=== PATIENT | female | born 1955 | race Caucasian/White ===

== ENCOUNTER 2019-08-16 08:48 | Emergency (ER) | payer MEDICARE, SELFPAY ==
[2019-08-16 08:50] VITALS: BP 155/76; PULSE 89; RESP 10; TEMP 36.5; O2SAT 96; BMI 26.1
--- NOTE | 2019-08-16 09:01 | CT_ITS ---
STUDY: CT BRAIN WITHOUT CONTRAST REASON FOR EXAM: Female, 63 years old. HEADACHE, HTN, CHEST PAIN X 1 WEEK RADIATION DOSAGE (If Supplied By Facility): CTDIvol = ( 44.99 ) mGy, DLP = ( 779.24 ) mGycm TECHNIQUE: Transaxial CT imaging of the brain was performed without administration of intravenous contrast material. Individualized dose optimization techniques were used for this CT. COMPARISON: No relevant priors. FINDINGS: Normal soft tissue structures. Normal calvarium. There is mild cerebral atrophy with widening of the extra-axial spaces and ventricular dilatation. There are areas of decreased attenuation within the white matter tracts of the supratentorial brain, consistent with microvascular disease changes. Tiny old lacunar infarct in the right insular cortex. Normal brainstem. Normal cerebellum. There is no intracranial hemorrhage. There are no findings of an acute ischemic infarction. Atherosclerotic calcification of the vertebral arteries and the cavernous portions of the internal carotid arteries bilaterally. Normal visualized paranasal sinuses. CT/Brain/Head without Contrast IMPRESSION: Chronic involutional changes of the brain. Electronically Signed: Michele Sheikh, at 10:00 EST , Service support ,
--- NOTE | 2019-08-16 09:04 | ED.VISSUMM ---
- ER Visit Summary Date of Service: 08/16/19 Chief Complaint: Chest pain History of Present Illness: The patient is a 63 F who presents with chest pain and a headache that is been getting worse over the past 1 to 2 weeks. Patient states it is gradually gotten worse. Patient states she called her primary care physician who told her to come to the emergency department. Patient states her headache is worse when she lays down. Patient admits to some nausea and vomiting. Patient admits to some shortness of breath and cough. Patient also admits to general myalgias and weakness. Past medical history includes diabetes and fibromyalgia. Patient also has a family history of coronary artery disease. Physical Examination: Vital signs are stable. Patient is afebrile. Patient is in no acute distress. Oral mucosa is pink and moist. Neck is supple. Trachea is midline. There is no JVD noted. Heart was regular rate and rhythm. Lungs are clear and equal bilaterally. Abdomen is soft. Bowel sounds are normal. There is no tenderness. There is no rebound or guarding noted. Skin is warm dry. Cranial nerves II through XII are intact. There are no focal motor or sensory deficits noted. Extremities are intact. There is no calf tenderness or edema. Test Results: EKG showed normal sinus rhythm with a rate of 107. There is a lot of artifact due to the patient's bladder stimulator. There are no acute ST or T wave changes. There are no prior EKGs available for comparison. PA and lateral chest x-ray was obtained. There is atelectasis versus scarring but no acute infiltrate. This was interpreted by the radiologist and myself. CT scan of the brain was obtained. There is no acute intracranial abnormality. CBC and comprehensive metabolic profile were within normal limits. Troponin was normal. Urinalysis shows positive nitrites with 3+ bacteria however there were negative leukocytes and 0-5 white blood cells. Emergency Department Course and Treatment: Patient was given morphine and Zofran here. Patient was feeling better on reevaluation. Patient has a HEART score of 3 and a SUSANNAH risk score of 0. Patient was advised that her chest pain is not likely cardiac in nature. Patient was instructed to follow-up with her primary care physician in 5 to 7 days. Patient understood and was agreeable with the plan. All questions were answered. Disposition: Discharge home Impression: 1. Chest pain 2. Headache This note was generated with Dragon dictation software. It may contain incorrect words, spelling, and punctuation that were not noted in review of the chart prior to signing ED Disposition - Plan for ED Patient: Disposition: Home or Assisted Living Diagnosis: Chest pain of uncertain etiology, Headache Instructions: CHEST PAIN, Uncertain Cause, HEADACHE, Unspecified Referrals: Nelly Strauss MD [Primary Care Provider] - 3-5 Days
[2019-08-16] MEDS: Ondansetron 4 MG/2 ML Vial IV (09:23)
[2019-08-16] MEDS: Morphine 4 MG/ML Syringe IV (09:23)
[2019-08-16 09:24] LABS: Absolute Lymphocyte Count 0.57 X10^3/uL (0.83-4.51); Basophil# 0.02 X10^3/uL; Basophil% 0.4 % (0-1); Eosinophil# 0.03 X10^3/uL; Eosinophils% 0.6 % (0-5); Hematocrit 37.7 % (37-47); Hemoglobin 12.2 g/dL (12.0-15.0); Lymphocyte # 0.57 X10^3/ul (4.0); Lymphocyte % 11.1 % (19-41); Mean Corp Hgb Conc 32.4 g/dL (32-36); Mean Corpuscular Hgb 29.4 pg (27.0-32.0); Mean Corpuscular Volume 90.8 fL (81-99); Mean Platelet Vol. 10.6 fl (6.2-12.0); Monocyte# 0.52 X10^3/uL; Monocyte% 10.1 % (0-10); NRBC Flagged by Analyzer 0 % (0-5); Neutrophil # 3.97 X10^3/uL (2.7-7.7); POSITIVE DIFFERENTIAL YES; Platelet Count 160 K/mm3 (150-450); RBC Distribution Width SD 46.4 fl (35.1-43.9); Red Blood Count 4.15 M/mm3 (4.2-5.4); White Blood Count 5.2 K/mm3 (4.4-11.0)
[2019-08-16 09:27] LABS: Differential Indicated SCAN CRITERIA MET
--- NOTE | 2019-08-16 09:42 | EKG12_ITS ---
Test Reason : CP Blood Pressure : / mmHG Vent. Rate : 107 BPM Atrial Rate : 107 BPM P-R Int : 116 ms QRS Dur : 074 ms QT Int : 354 ms P-R-T Axes : 072 064 055 degrees QTc Int : 472 ms Sinus Tachycardia Nonspecific ST abnormality Abnormal ECG Confirmed by PATRICK HOOD, ASHLIE ([id number]), video news editor MARLON CHAVARRIA ([id number]) on 08/18/2019 1:08:47 PM Referred By: CL[place]ON Confirmed By:JAMES NGUYEN MD
[2019-08-16 09:43] LABS: ALB/GLOB Ratio 1.2 RATIO (0.9-2.4); AST(SGOT) 20 U/L (15-37); Alanine Aminotransfer ALT/SGPT 19 U/L (13-56); Albumin, Serum 3.8 g/dL (3.2-5.0); Alkaline Phosphatase 93 U/L (45-117); Anion Gap 8 (5-15); BUN 12 mg/dL (7-18); BUN/Creat Ratio 15.9 RATIO (10-20); Calcium,Total 9.3 mg/dL (8.5-10.1); Chloride 105 mmol/L (98-107); Creatinine, Serum 0.76 mg/dL (0.55-1.02); EST Glomerular Filtration Rate 82 mL/min (>60); Est Glom Filt Rate - Afr Amer 99 mL/min (>60); Estimated Creatinine Clearance 61.86 ml/min; Globulin 3.3 g/dL (2.2-4.2); Glucose 126 mg/dL (74-106); Potassium 3.5 mmol/L (3.5-5.1); Protein, Total 7.1 g/dL (6.4-8.2); Sodium Level 139 mmol/L (136-145)
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
[2019-08-16 10:05] LABS: Mucous, Urine 0 SEEN /hpf (<or=2+); Red Blood Cells-Urine 0 SEEN /hpf (0-5)
[2019-08-16 10:15] LABS: Color, Urine Yellow (Yellow); Glucose, Dipstick Normal (Normal); Ketone-Dipstick 50 mg/dl (Negative); Leukocyte Esterase-Dipstick Negative /ul (Negative); Nitrite-Dipstick Positive (Negative); Occult Blood-Urine Negative /ul (Negative); Protein-Dipstick Negative (Negative); Urine Bilirubin Dipstick Negative (Negative); Urine Clarity Sl. Cloudy (Clear); Urine Urobilinogen 1 mg/dl (Normal)
[2019-08-16 10:24] VITALS: BP 139/32; PULSE 84; RESP 12; O2SAT 100
[2019-08-16 10:29] LABS: Bacteria 3+ /hpf (None Seen); Squamous Epithelial Cells - UA 0-5 SEEN /hpf (5-10); White Blood Cells 0-5 SEEN /hpf (0-5)
[2019-08-16 11:09] VITALS: BP 134/74; PULSE 71; RESP 16; O2SAT 98
== END 2019-08-16 11:10 | disposition home or self-care (01) ==
PROVIDERS: Emergency Provider Emergency Medicine; PCP Internal Medicine
DX: R07.9 Chest pain, unspecified (principal); R51 Headache; R11.2 Nausea with vomiting, unspecified; R06.00 Dyspnea, unspecified; R05 Cough; R53.1 Weakness; J34.89 Other specified disorders of nose and nasal sinuses; H53.9 Unspecified visual disturbance; R00.2 Palpitations; R42 Dizziness and giddiness; E11.9 Type 2 diabetes mellitus without complications; M79.7 Fibromyalgia
CPT/HCPCS: 70450; 71046; 80053; 81001; 84484; 85025; 87804; 93005; 96374; 96375; 99285; J7050; A4216; J2405

== ENCOUNTER 2020-01-12 17:55 | Emergency (ER) | payer OTHER, MEDICARE, SELFPAY ==
[2020-01-12 18:04] VITALS: BP 173/94; PULSE 113; RESP 16; TEMP 36.9; O2SAT 99; BMI 25.9
[2020-01-12 18:07] VITALS: O2SAT 99
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
[2020-01-12] MEDS: HYDROcodone Bitartrate/Apap 5/325 Tablet PO (20:27)
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
[2020-01-12 21:27] VITALS: BP 144/89; PULSE 86; RESP 16; O2SAT 99
== END 2020-01-12 21:29 | disposition home or self-care (01) ==
PROVIDERS: Emergency Provider Emergency Medicine; PCP Internal Medicine
DX: S16.1XXA Strain of muscle, fascia and tendon at neck level, initial encounter (principal); S29.012A Strain of muscle and tendon of back wall of thorax, initial encounter; S39.012A Strain of muscle, fascia and tendon of lower back, initial encounter; M79.632 Pain in left forearm; V43.62XA Car passenger injured in collision with other type car in traffic accident, initial encounter; Y93.9 Activity, unspecified; Y92.9 Unspecified place or not applicable; Y99.9 Unspecified external cause status
CPT/HCPCS: 70450; 72072; 72100; 72125; 73090; 99284

== ENCOUNTER 2020-03-24 21:46 | Emergency (ER) | payer MEDICARE, OTHER, SELFPAY ==
[2020-03-24 21:47] VITALS: BP 154/85; PULSE 90; RESP 18; TEMP 36.6; O2SAT 100; BMI 24.6
[2020-03-24 22:15] LABS: Mucous, Urine 0 SEEN /hpf (<or=2+)
[2020-03-24] MEDS: Morphine 4 MG/ML Syringe IV ×2 (22:15→22:47)
[2020-03-24] MEDS: 0.9% Normal Saline 1,000 ML 1000 ML IV (22:15)
[2020-03-24] MEDS: Ondansetron 4 MG/2 ML Vial IV (22:15)
[2020-03-24 22:18] LABS: Absolute Lymphocyte Count 3.74 X10^3/uL (0.83-4.51); Absolute Neutrophil Count 6.2 X10^3/uL (2.0-7.7); Basophil# 0.06 X10^3/uL; Basophil% 0.5 % (0-1); Color, Urine Straw (Yellow); Eosinophil# 0.19 X10^3/uL; Eosinophils% 1.7 % (0-5); Glucose, Dipstick Normal (Normal); Hematocrit 38.6 % (37-47); Hemoglobin 12.4 g/dL (12.0-15.0); Ketone-Dipstick Negative (Negative); Leukocyte Esterase-Dipstick 25 /ul (Negative); Lymphocyte # 3.74 X10^3/ul (4.0); Lymphocyte % 33.6 % (19-41); Mean Corp Hgb Conc 32.1 g/dL (32-36); Mean Corpuscular Hgb 28.6 pg (27.0-32.0); Mean Corpuscular Volume 88.9 fL (81-99); Mean Platelet Vol. 9.9 fl (6.2-12.0); Monocyte# 0.89 X10^3/uL; NRBC Flagged by Analyzer 0 % (0-5); Neutrophil # 6.17 X10^3/uL (2.7-7.7); Neutrophil % 55.6 % (47-70); Nitrite-Dipstick Negative (Negative); Occult Blood-Urine 10 /ul (Negative); Platelet Count 369 K/mm3 (150-450); Protein-Dipstick Negative (Negative); RBC Distribution Width CV 14.6 % (11.6-14.6); RBC Distribution Width SD 47.1 fl (35.1-43.9); Red Blood Count 4.34 M/mm3 (4.2-5.4); Specific Gravity, Urine 1.015 (1.002-1.030); Urine Bilirubin Dipstick Negative (Negative); Urine Clarity Clear (Clear); Urine Urobilinogen Normal (Normal); White Blood Count 11.1 K/mm3 (4.4-11.0)
--- NOTE | 2020-03-24 22:18 | ED.DCSUM_ITS ---
- ER Visit Summary Date of Service: 03/24/20 Chief Complaint: Abdominal pain History of Present Illness: The patient is a [address] Strauss and Dr. Hatch. She reports that she has had abdominal pain for the past 3 years. She is had an extensive evaluation without a source being found. She had a colonoscopy 2 to 3 years ago that was negative. She does have a history of a gastric bypass approximately 10 years ago in [place]. She also has a history of an appendectomy, cholecystectomy, and hysterectomy. Patient reports that her pain worsened approximately 2 hours ago. Is gradually gotten worse. Says sharp diffuse pain that is 10 on 10 severity. Nothing makes this better or worse. She had nausea without vomiting. No diarrhea. Her last bowel movement was today. No melena or hematochezia. No dysuria or frequency. She does report that she has mild left flank pain. She also complains of chills. She denies any other complaints. Physical Examination: Vitals: Stable. Afebrile. General: Well-nourished and well-developed. Head: Normocephalic atraumatic. Neck: Supple, no lymphadenopathy. No JVD. Nontender. Cardiovascular: Regular rate and rhythm. No murmurs. Respiratory: No respiratory distress. Clear to auscultation bilaterally. Abdominal: Soft, moderate diffuse tenderness to palpation, nondistended, normal bowel sounds. No guarding, rebound, or peritoneal signs. Back: Nontender. Extremities: Nontender, no edema. Skin: Normal color, no rash. Neurologic: Alert and oriented ?3. Cranial nerves II through XII are intact. Normal strength and sensation. Psych: Depressed affect. Test Results: CBC shows a white count of 11.1 with a normal differential. Chem- 7 shows a glucose 165. LFTs are normal. Lipase is negative. UA shows 1+ bacteria with no whites or reds. She is positive for leukocyte Estrace. She has no urinary complaints. Clinical Impression(s) from Imaging Studies Abdomen/Pelvis CT 03/25/20 00:02 IMPRESSION: CT findings compatible with a partial mechanical small bowel obstruction, with transition point visible in the anterior abdomen. Peripheral groundglass opacities are present in both lungs, correlate clinically for viral pneumonia. Electronically Signed: Stephan Mandel MD at 0:23 EDT Tel , Service support , ADDENDUM: 03/25/20 0033 IMPRESSION: CT findings compatible with a partial mechanical small bowel obstruction, with transition point visible in the anterior abdomen. Peripheral groundglass opacities are present in both lungs, correlate clinically for viral pneumonia. N.B. : The above information has been verbally conveyed by Stephan Mandel MD to Sav Piedra MD, on 03/25/2020 00:26:46 (ET). Electronically Signed: Stephan Mandel MD at 0:23 EDT Tel , Service support , Chest X-Ray 03/25/20 00:40 IMPRESSION: No acute cardiopulmonary disease. at 0107 Reported and signed by: Ru Mathew MD Electronically Signed: Ru Mathew MD at 1:06 EDT Tel , Service support , Emergency Department Course and Treatment: Patient had an IV placed. She was given a liter normal saline. She was given morphine and Zofran IV. She is resting more comfortably. Patient complained of burning with drinking the contrast for the CT. She was given a GI cocktail and then tolerated this much more easily. Patient has not been vomiting here. She did not have an NG tube placed. Treatment Plan: Patient was discussed Dr. Campos who reviewed the CT. Given her history of gastric bypass she he asked that she be transferred somewhere where there is a bariatric surgeon. She has to go to [facility]. Disposition: Transferred in improved condition. Impression: 1. Partial small bowel obstruction. 2. History of gastric bypass. This note was generated with [employer] software. It may contain incorrect words, spelling, and punctuation that were not noted in review of the chart prior to signing ED Disposition - Plan for ED Patient: Referrals: Nelly Strauss MD [Primary Care Provider] -
[2020-03-24 22:26] LABS: Bacteria 1+ /hpf (None Seen); Red Blood Cells-Urine 0-5 SEEN /hpf (0-5); Squamous Epithelial Cells - UA 0-5 SEEN /hpf (5-10); White Blood Cells 0-5 SEEN /hpf (0-5)
[2020-03-24 22:47] LABS: ALB/GLOB Ratio 0.9 RATIO (0.9-2.4); AST(SGOT) 19 U/L (15-37); Alanine Aminotransfer ALT/SGPT 19 U/L (13-56); Albumin, Serum 3.8 g/dL (3.2-5.0); Alkaline Phosphatase 112 U/L (45-117); Anion Gap 8 (5-15); BUN 16 mg/dL (7-18); BUN/Creat Ratio 17.4 RATIO (10-20); Calcium,Total 9.7 mg/dL (8.5-10.1); Chloride 103 mmol/L (98-107); Creatinine, Serum 0.92 mg/dL (0.55-1.02); EST Glomerular Filtration Rate 65 mL/min (>60); Est Glom Filt Rate - Afr Amer 79 mL/min (>60); Estimated Creatinine Clearance 50.43 ml/min; Globulin 4.2 g/dL (2.2-4.2); Glucose 165 mg/dL (74-106); Lipase 116 U/L (73-393); Potassium 4.4 mmol/L (3.5-5.1); Sodium Level 139 mmol/L (136-145)
[2020-03-24 23:05] VITALS: BP 173/67; PULSE 72; RESP 15; O2SAT 100
[2020-03-24] MEDS: Mag Hydrox/Al Hydrox/Simeth 30 ML UDC PO (23:17)
--- NOTE | 2020-03-25 00:02 | CT_ITS ---
We are attempting to reach an attending provider to discuss findings. An addendum with communication details will be sent when the communication is complete. STUDY: CT ABDOMEN AND PELVIS WITH CONTRAST REASON FOR EXAM: Female, 64 years old. ABD PAIN/N/V. Hx of prior gastric bypass, cholecystectomy, appendectomy, breast reduction and panniculectomy. HTN, HLD and diabetes(diet controlled) RADIATION DOSAGE (If Supplied By Facility): CTDIvol = ( 14.79 ) mGy, DLP = ( 913.02 ) mGycm TECHNIQUE: Transaxial images were obtained from the dome of the diaphragm to the symphysis pubis with oral contrast. Oral and amp; IV Gastrografin and amp; 100mL Isovue-370 was administered. Sagittal and coronal images were reconstructed. Individualized dose optimization techniques were used for this CT. COMPARISON: None. FINDINGS: Peripheral groundglass opacities are present in both lungs, correlate clinically for viral pneumonia. The visualized portions of the heart are within normal limits. Normal liver. There are surgical clips in the gallbladder fossa consistent with a prior cholecystectomy. Normal spleen. Normal pancreas. Normal bilateral adrenal glands. Normal right kidney. Normal left kidney. Gastric bypass. 31 mm duodenal diverticulum. Inspissated material is present in the mid small bowel. Small bowel is dilated at the level of the inspissated material and more proximally, measuring up to 3.8 cm in diameter. Transition point is present in the anterior abdomen. Normal colon. There is non-visualization of the appendix. Normal abdominal aorta. Normal inferior vena cava. Normal retroperitoneum. Normal urinary bladder. Normal abdominal wall. Sacral stimulator. CT/Abdomen/Pelvis WITH Contrast IMPRESSION: CT findings compatible with a partial mechanical small bowel obstruction, with transition point visible in the anterior abdomen. Peripheral groundglass opacities are present in both lungs, correlate clinically for viral pneumonia. Electronically Signed: Stephan Mandel MD at 0:23 EDT Tel , Service support ,
[2020-03-25] MEDS: Morphine 4 MG/ML Syringe IV ×2 (00:19→03:19)
--- NOTE | 2020-03-25 00:40 | RAD_ITS ---
HISTORY: COUGH EXAM: XR Chest 1 View: COMPARISON: August 16, 2019 FINDINGS: # of images incl. paperwork: 1 Right upper quadrant surgical clips likely related to cholecystectomy. Left upper quadrant surgical clips and anastomotic staple line better demonstrated on the previous study may be related to a surgery such as a gastric bypass. Calcific plaque within the aortic arch persists. Linear scarring in the right lung base is similar. No focal airspace disease perceived Heart is not enlarged. No acute osseous pathology perceived. Pulmonary vascularity is distinct. No effusions. RAD/Chest 1 View IMPRESSION: No acute cardiopulmonary disease. at 0107 Reported and signed by: Ru Mathew MD Electronically Signed: Ru Mathew MD at 1:06 EDT Tel , Service support ,
[2020-03-25 01:00] VITALS: BP 168/82; PULSE 76; RESP 15; O2SAT 99
[2020-03-25 02:38] VITALS: BP 142/59; PULSE 77; O2SAT 98
[2020-03-25 03:24] VITALS: BP 132/57; PULSE 77; RESP 15; O2SAT 95
[2020-03-25 04:23] LABS: Probe Check PASS; Specimen Processing Control PASS
== END 2020-03-25 03:23 | disposition short-term general hospital (02) ==
PROVIDERS: Emergency Provider Emergency Medicine; PCP Internal Medicine
DX: K56.600 Partial intestinal obstruction, unspecified as to cause (principal); Z98.84 Bariatric surgery status; F41.9 Anxiety disorder, unspecified; F32.9 Major depressive disorder, single episode, unspecified; E03.9 Hypothyroidism, unspecified; Z90.49 Acquired absence of other specified parts of digestive tract; Z79.899 Other long term (current) drug therapy; Z72.0 Tobacco use
CPT/HCPCS: 71045; 74177; 80053; 81001; 83690; 85025; 87635; 96361; 96374; 96375; 96376; 99284; C9803; J7030; Q9967; A4216; J2405; U0003

== ENCOUNTER 2021-02-18 11:12 | Emergency (ER) | payer MEDICARE, SELFPAY ==
[2021-02-18 11:13] VITALS: BP 123/85; PULSE 97; RESP 16; TEMP 36.6; O2SAT 99; BMI 29.9
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
--- NOTE | 2021-02-18 11:44 | EDS_ITS ---
HPI HPI - Fall History of Present Illness Chief Complaint: Fall Informant: patient Narrative Narrative: 65-year-old female going down the steps to the garage when she missed the step. She fell acute flank pain twisting her right ankle and leg. She notes that she hit the back of her head and has some neck pain as well. She is not on any anticoagulants. Patient notes swelling and ecchymosis over the right ankle and leg. She notes that prior to the fall she was also having some pain up in her thigh laterally. No back pain. [facility] Medical History Anxiety Depression Home Medications Anxiety 1 tab PO DAILY 07/24/16 [History Last Taken 01/12/20] Depression Med 1 tab PO DAILY 07/24/16 [History Last Taken 01/12/20] Multiple Vitamins With Iron 1 tab PO DAILY 07/24/16 [History Last Taken 01/12/20] Thyroid 1 tab PO DAILY 07/24/16 [History Last Taken 01/12/20] Acid Reflux 1 tab PO DAILY 01/12/20 [History Last Taken 01/12/20] hydrocodone-acetaminophen 1 tab PO Q6H PRN PRN 3 Days #12 tablet 02/18/21 [Rx Last Taken Unknown] Allergy/AdvReac Type Severity Reaction Status Date / Time No Known Allergies Allergy Verified 02/18/21 11:15 Social History (Updated 02/18/21 @ 11:[address] Spencer Garcia DO) Smoking Status: Former smoker substance use type: does not use ROS ROS ED Constitutional Constitutional ED: Denies chills or weight loss Eyes Eyes: Denies change in vision or diplopia ENT ENT ED: Denies ear pain, rhinorrhea or sore throat Cardiovascular Cardiovascular: Denies chest pain, orthopnea, palpitations or racing heartbeat Respiratory/Chest Respiratory/Chest: Denies cough, dyspnea or orthopnea Gastrointestinal Gastrointestinal: Denies abdominal pain, diarrhea, nausea or vomiting Genitourinary Genitourinary ED: Denies dysuria, hematuria or urinary frequency Musculoskeletal Musculoskeletal: Reports neck pain and other Details: See HPI ; Denies arthralgias or myalgias Integumentary Denies abscess or rash Neurologic Neurologic: Denies headache(s) or weakness Psychiatric Psychiatric: Denies anxiety, depression, suicidal ideation or suicidal thoughts Endocrine Endocrinology: Denies polydipsia, polyphagia or polyuria Allergic/Immunologic Allergic/Immunologic ED: Denies mouth swelling, tongue swelling or urticaria EXAM Physical Exam Const Vital Signs: 02/18/21 11:13 02/18/21 11:22 Temperature 97.9 F Temperature Source Temporal Pulse Rate 97 Respiratory Rate 16 Respiratory Effort Normal Non-Labored Blood Pressure 123/85 H Blood Pressure Mean 97 Pulse Ox 99 Oxygen Delivery Method Room Air Room Air Positive well nourished and well developed General Appearance ED: well developed HEENT Reports normocephalic, head/scalp atraumatic and moist mucous membranes Eyes PERRL and EOMs intact bilaterally Neck no lymphadenopathy, supple and no JVD Neck Narrative: Tender to palpation over the mid neck both in the midline and paraspinal Resp normal respiratory effort and clear to auscultation bilaterally Cardio regular rate, regular rhythm and no murmurs GI normal to inspection, nondistended, normoactive bowel sounds and non-tender Palpation: soft Back/Spine no CVA tenderness and normal ROM Extremity Extremity Narrative: Ecchymosis particularly over the lateral malleolus extending proximally and anteriorly to the lower leg. Tender to palpation over the fibular head. No fifth metatarsal pain General Extremety ED: Negative for edema General Extremity: Negative for edema Neuro oriented x3 and CN's II-XII intact bilaterally Sensorium / Orientation: alert Motor Exam: strength 5/5 throughout Psych mental status grossly normal Mood & Affect: Negative for depressed or tearful Skin no rashes or lesions noted and no wounds MDM MDM MDM Narrative Medical decision making narrative: CT the brain and cervical spine showed no acute findings. My impression of the plain films of the tib-fib and the ankle is a lateral malleolus fracture and a polar fracture of the medial malleolus. Case was discussed with Dr. Powell. She was placed in a Ortho-Glass posterior stirrup splint will be nonweightbearing. She received pain medication I will write a prescription for the same. She will also receive crutches Radiography Diagnostic Testing: Radiology Impression Cervical Spine CT 02/18/21 11:40 IMPRESSION: No fracture or dislocation in the cervical spine. Stable mild multilevel degenerative changes. Stable sclerosis of the dens which likely represents a bone island. Stable bony fusion of C2/C3. Electronically Signed: Viktor Lopez MD at 12:45 EDT Tel , Service support , Brain CT 02/18/21 11:59 IMPRESSION: Stable chronic ischemic and atrophic changes. No acute intracranial abnormality. Electronically Signed: Viktor Lopez MD at 12:40 EDT Tel , Service support , Discharge Plan Triage Chief Complaint: Fall ED Provider: Spencer Garcia Dx/Rx/DC Orders Clinical Impression: Fall, Bimalleolar fracture of right ankle, Head injury Instructions: ED Ankle Fracture Prescriptions: New hydrocodone-acetaminophen [hydrocodone-acetaminophen] 1 TABLET tablet 1 tab PO Q6H PRN PRN (Reason: Pain) 3 Days Qty: 12 RF: 0 No Action Anxiety 1 tab PO DAILY RF: 0 Depression Med 1 tab PO DAILY RF: 0 Multiple Vitamins With Iron 1 tab PO DAILY RF: 0 Thyroid 1 tab PO DAILY RF: 0 Acid Reflux 1 tab PO DAILY RF: 0 Primary Care Provider: Marylu Sanchez NP Referrals: Cornelio Dillard DPM [STAFF PHYSICIAN] - As soon as possible Marylu Sanchez NP, [employer] [Primary Care Provider] - Disposition Disposition: Home, Self Care
--- NOTE | 2021-02-18 11:59 | CT_ITS ---
STUDY: CT BRAIN WITHOUT CONTRAST REASON FOR EXAM: Female, 65 years old. Injury RADIATION DOSAGE (If Supplied By Facility): CTDIvol = ( 44.99 ) mGy, DLP = ( 812.98 ) mGycm TECHNIQUE: Transaxial CT imaging of the brain was performed without administration of intravenous contrast material. Individualized dose optimization techniques were used for this CT. COMPARISON: 01/12/20 FINDINGS: There is no acute bleed or infarct. There are stable chronic ischemic and atrophic changes. The ventricles are normal in configuration. There is no hydrocephalus. The visualized paranasal sinuses are clear. The mastoid air cells are well aerated. There is no skull fracture. CT/Brain/Head without Contrast IMPRESSION: Stable chronic ischemic and atrophic changes. No acute intracranial abnormality. Electronically Signed: Viktor Lopez MD at 12:40 EDT Tel , Service support ,
--- NOTE | 2021-02-18 12:05 | RAD_ITS ---
STUDY: X-RAY - RIGHT ANKLE REASON FOR EXAM: Female, 65 years old. Injury TECHNIQUE: 3 view(s) of the ankle. COMPARISON: None. FINDINGS: There is an oblique fracture of the lateral malleolus with overlying soft tissue swelling. The remainder the visualized osseous structures are intact. There are no radiodense foreign bodies. RAD/Ankle min 3 Views IMPRESSION: Oblique fracture of the lateral malleolus with overlying soft tissue swelling. Electronically Signed: Viktor Lopez MD at 13:04 EDT Tel , Service support ,
[2021-02-18] MEDS: HYDROcodone Bitartrate/Apap 5/325 Tablet PO (12:29)
[2021-02-18 13:21] VITALS: BP 119/79; PULSE 85; RESP 16; O2SAT 97
== END 2021-02-18 13:22 | disposition home or self-care (01) ==
PROVIDERS: Emergency Provider Emergency Medicine; PCP Nurse Practitioner Family
DX: S82.841A Displaced bimalleolar fracture of right lower leg, initial encounter for closed fracture (principal); S09.90XA Unspecified injury of head, initial encounter; W10.9XXA Fall (on) (from) unspecified stairs and steps, initial encounter; Y93.9 Activity, unspecified; Y92.9 Unspecified place or not applicable; F32.9 Major depressive disorder, single episode, unspecified; F41.9 Anxiety disorder, unspecified; Z79.899 Other long term (current) drug therapy; Z87.891 Personal history of nicotine dependence
CPT/HCPCS: 29515; 70450; 72125; 73590; 73610; 99284

== ENCOUNTER → 2021-02-28 15:36 | Outpatient (CLI) | payer MEDICARE, SELFPAY ==
[2021-02-18 11:13] VITALS: BMI 29.9
--- NOTE | 2021-02-28 16:00 | CT_ITS ---
CT of the right ankle without contrast INDICATION: Posttraumatic pain TECHNIQUE: CT of the right ankle was performed in the axial projection without contrast followed by sagittal and coronal reconstructions. Additional 3-D volume rendered images were obtained at the workstation Radiographic technique was optimized to limit patient radiation dose. DLP was 361.44 FINDINGS: There is an obliquely oriented comminuted fracture of the distal fibular shaft with mild separation and dorsal angulation of fracture fragments. There is also a tiny chip or avulsion fracture of the distal tibial plafond with mild separation of fracture fragments. There is associated bimalleolar soft tissue swelling. The tibiotalar and talofibular joint spaces are intact. CT/Extremity Lower without Contra IMPRESSION: Acute bimalleolar fracture of the right ankle Electronically Signed: Cornelio Contreras MD at 16:19 EDT , Service support ,
--- NOTE | 2021-02-28 16:00 | CT_ITS ---
CT of the right ankle without contrast INDICATION: Posttraumatic pain TECHNIQUE: CT of the right ankle was performed in the axial projection without contrast followed by sagittal and coronal reconstructions. Additional 3-D volume rendered images were obtained at the workstation Radiographic technique was optimized to limit patient radiation dose. DLP was 361.44 FINDINGS: There is an obliquely oriented comminuted fracture of the distal fibular shaft with mild separation and dorsal angulation of fracture fragments. There is also a tiny chip or avulsion fracture of the distal tibial plafond with mild separation of fracture fragments. There is associated bimalleolar soft tissue swelling. The tibiotalar and talofibular joint spaces are intact. CT/Coronals Sag Multi Obl 3-D Rec IMPRESSION: Acute bimalleolar fracture of the right ankle Electronically Signed: Cornelio Contreras MD at 16:19 EDT , Service support ,
== END ==
PROVIDERS: PCP Nurse Practitioner Family; Referring Provider Podiatrist; Visit Provider Podiatrist
DX: S82.841A Displaced bimalleolar fracture of right lower leg, initial encounter for closed fracture (principal)
CPT/HCPCS: 73700; 76377

== ENCOUNTER 2021-02-28 15:58 | Emergency (ER) | payer MEDICARE, SELFPAY ==
[2021-02-28 15:59] VITALS: BP 157/94; PULSE 107; RESP 15; TEMP 36.2; O2SAT 96; BMI 28.1
--- NOTE | 2021-02-28 18:10 | EX.ED.DYSGE1 ---
HPI History of Present Illness Chief Complaint: Lower Extremity Injury Informant: patient Narrative Narrative: 65-year-old female presents the emergency room with right leg pain. 10 days ago the patient was diagnosed with a bimalleolar fracture. She was given 3 days of pain medication and subsequently followed up with podiatry. They wrote her additional pain medication. Patient states that that medicine is not helping. She states she is feels extremely anxious and stressed because her sister has recently had surgery and help the patient out as was expected. She also feels stressed that she cannot help her sister out. She also states that she is having difficulty sleeping. Her mom earlier in the year. She reports having a appointment next Wednesday with her doctor to discuss a variety of things including her anxiety. [facility] Medical History Anxiety Depression Home Medications Anxiety 1 tab PO DAILY 07/24/16 [History Last Taken 01/12/20] Depression Med 1 tab PO DAILY 07/24/16 [History Last Taken 01/12/20] Multiple Vitamins With Iron 1 tab PO DAILY 07/24/16 [History Last Taken 01/12/20] Thyroid 1 tab PO DAILY 07/24/16 [History Last Taken 01/12/20] Acid Reflux 1 tab PO DAILY 01/12/20 [History Last Taken 01/12/20] hydrocodone-acetaminophen 1 tab PO Q6H PRN PRN 3 Days #12 tablet 02/18/21 [Rx Last Taken Unknown] hydrocodone-acetaminophen 1 tab PO Q6H PRN 5 Days #14 tab 02/20/21 [Rx Last Taken Unknown] diazepam 5 mg PO Q8 PRN #10 tab 02/28/21 [Rx Last Taken Unknown] oxycodone-acetaminophen 1 tab PO Q6H PRN PRN 3 Days #12 tablet 02/28/21 [Rx Last Taken Unknown] Allergy/AdvReac Type Severity Reaction Status Date / Time No Known Allergies Allergy Verified 02/28/21 16:00 Social History Smoking Status: Former smoker substance use type: does not use ROS ROS ED Constitutional Constitutional ED: Denies chills or weight loss Eyes Eyes: Denies change in vision or diplopia ENT ENT ED: Denies ear pain, rhinorrhea or sore throat Cardiovascular Cardiovascular: Denies chest pain, orthopnea, palpitations or racing heartbeat Respiratory/Chest Respiratory/Chest: Denies cough, dyspnea or orthopnea Gastrointestinal Gastrointestinal: Denies abdominal pain, diarrhea, nausea or vomiting Genitourinary Genitourinary ED: Denies dysuria, hematuria or urinary frequency Musculoskeletal Musculoskeletal: Reports other Details: Right leg pain ; Denies arthralgias or myalgias Integumentary Reports other; Denies abscess or rash Neurologic Neurologic: Denies headache(s) or weakness Psychiatric Psychiatric: Reports anxiety; Denies depression, suicidal ideation or suicidal thoughts Endocrine Endocrinology: Denies polydipsia, polyphagia or polyuria Allergic/Immunologic Allergic/Immunologic ED: Denies mouth swelling, tongue swelling or urticaria EXAM Physical Exam Const Vital Signs: 02/28/21 15:59 Temperature 97.2 F L Temperature Source Temporal Pulse Rate 107 H Respiratory Rate 15 Blood Pressure 157/94 H Blood Pressure Mean 115 Pulse Ox 96 Oxygen Delivery Method Room Air Positive well nourished and well developed General Appearance ED: well developed HEENT Reports normocephalic, head/scalp atraumatic and moist mucous membranes Eyes PERRL and EOMs intact bilaterally Neck no lymphadenopathy, supple and no JVD Resp normal respiratory effort and clear to auscultation bilaterally Cardio regular rate, regular rhythm and no murmurs GI normal to inspection, nondistended, normoactive bowel sounds and non-tender Palpation: soft Back/Spine no CVA tenderness and normal ROM Extremity Extremity Narrative: Right leg is in a cast. The toes appear well perfused. No significant swelling noted. General Extremety ED: Negative for edema General Extremity: Negative for edema Neuro oriented x3 and CN's II-XII intact bilaterally Sensorium / Orientation: alert Motor Exam: strength 5/5 throughout Psych mental status grossly normal Mood & Affect: depressed and anxious; Negative for tearful Skin no rashes or lesions noted and no wounds MDM MDM MDM Narrative Medical decision making narrative: We can try Percocet if the hydrocodone was not working. I can write her some Valium and see if that helps her at nighttime. She is already prescribed a milligram of Ativan and she was advised not to take the Ativan with the Valium. Patient was advised that unfortunately here in the emergency department we do with acute problems and anxiety due to life stressors is difficult to manage and best done with someone who can see her long-term. Discharge Plan Triage Chief Complaint: Lower Extremity Injury ED Provider: Spencer Garcia Dx/Rx/DC Orders Clinical Impression: Acute pain of right lower extremity, Anxiety Instructions: Understanding Anxiety Disorders Prescriptions: New oxycodone-acetaminophen [oxycodone-acetaminophen] 1 TABLET tablet 1 tab PO Q6H PRN PRN (Reason: Pain) 3 Days Qty: 12 RF: 0 diazepam [diazepam] 5 MG tablet 5 mg PO Q8 PRN (Reason: Muscle Spasm) Qty: 10 RF: 0 No Action Anxiety 1 tab PO DAILY RF: 0 Depression Med 1 tab PO DAILY RF: 0 Multiple Vitamins With Iron 1 tab PO DAILY RF: 0 Thyroid 1 tab PO DAILY RF: 0 Acid Reflux 1 tab PO DAILY RF: 0 hydrocodone-acetaminophen [hydrocodone-acetaminophen] 1 TABLET tablet 1 tab PO Q6H PRN PRN (Reason: Pain) 3 Days Qty: 12 RF: 0 hydrocodone-acetaminophen 5-325 mg tablet 1 tab PO Q6H PRN (Reason: pain) 5 Days Qty: 14 RF: 0 Primary Care Provider: Marylu Sanchez NP Referrals: Marylu Sanchez BAKER CHEF, [facility] [Primary Care Provider] - As soon as possible Activity Restrictions/Additional Instructions: Do not take the Valium with Ativan. Either 1 or the other. Disposition Disposition: Home, Self Care
== END 2021-02-28 18:34 | disposition home or self-care (01) ==
PROVIDERS: Emergency Provider Emergency Medicine; PCP Nurse Practitioner Family
DX: M79.604 Pain in right leg (principal); F41.9 Anxiety disorder, unspecified; F32.9 Major depressive disorder, single episode, unspecified; Z79.899 Other long term (current) drug therapy; Z87.891 Personal history of nicotine dependence; S82.841A Displaced bimalleolar fracture of right lower leg, initial encounter for closed fracture
CPT/HCPCS: 73700; 76377; 99282

== ENCOUNTER 2021-06-04 07:40 | Day surgery (SDC) | payer MEDICARE, SELFPAY ==
[2021-06-04] VITALS (8 sets, daily range): BP systolic 105–128; BP diastolic 60–88; PULSE 74–100; RESP 16–18; TEMP 36.1–36.4; O2SAT 92–98; BMI 28.9
[2021-06-04] MEDS: Lactated Ringers 1,000 ML 15 ML IV ×2 (08:25→12:10)
[2021-06-04 08:35] LABS: Bedside Glucose 211 mg/dL (70-110)
--- NOTE | 2021-06-04 10:10 | RAD_ITS ---
STUDY: X-RAY - PELVIS REASON FOR EXAM: Female, 65 years old. INTERSTIM THERAPY 1 TECHNIQUE: 3 intraoperative views COMPARISON: None. FINDINGS: 3 limited intraoperative views were performed as the patient has undergone placement of a neural stimulator catheter. No intraoperative complications. RAD/Pelvis 1 or 2 Views IMPRESSION: No intraoperative complications noted during stimulator catheter placement Electronically Signed: Ronan Garcia MD at 17:23 EST , Service support ,
[2021-06-04] MEDS: Cefazolin 2 GM in 0.9% Normal Saline 100 ML IV (10:37)
[2021-06-04] MEDS: Lidocaine 1% (30 ml sdv) 30 ML Vial (11:21)
--- NOTE | 2021-06-04 11:33 | HP.PCM_ITS ---
HPI - General HPI Narrative MELINA LEE, is a 65 F who presents for placement of interstim therapy stage I and II with severe urge incontinence and frequency failed medical therapy. [facility] Medical History (Updated 06/04/21 @ 11:[address] Dominguez Goldberg MD) Ambulates with cane Anxiety Arthritis Back pain Depression Diabetes Gastric reflux History of edema History of hiatal hernia History of pain when walking History of stress test Hypertension Injury of back Injury of head and neck Leg cramps Marijuana use Migraine headache Sleep apnea Smoker Thyroid disease Wears dentures Wears glasses Wears hearing aid Home Medications Multiple Vitamins With Iron 1 tab PO DAILY 07/24/16 [History Last Taken 01/12/20] cholecalciferol (vitamin D3) 5,000 unit PO DAILY 05/28/21 [History Last Taken Unknown] dicyclomine 10 mg PO TID 05/28/21 [History Last Taken Unknown] fluoxetine 40 mg PO QHS 05/28/21 [History Last Taken Unknown] levothyroxine 50 mcg PO DAILY 05/28/21 [History Last Taken Unknown] lorazepam 1 mg PO BID 05/28/21 [History Last Taken Unknown] rosuvastatin 5 mg PO QHS 05/28/21 [History Last Taken Unknown] tizanidine 4 mg PO QHS 05/28/21 [History Last Taken Unknown] ciprofloxacin HCl [Cipro] 500 mg PO BID #10 tab 06/04/21 [Rx Last Taken Unknown] oxycodone-acetaminophen 1 tab PO Q6H PRN 7 Days #10 tab 06/04/21 [Rx Last Taken Unknown] Allergy/AdvReac Type Severity Reaction Status Date / Time No Known Allergies Allergy Verified 06/04/21 08:10 Surgical History (Updated 05/28/21 @ 09:25 by Radha Huitron) History of cardiac catheterization Hx of bilateral breast reduction surgery Hx of foot surgery Hx of gastric bypass Hx of hernia repair Hx of hysterectomy Hx of surgical procedure Social History Smoking Status: Current some day smoker tobacco type: cigarettes substance use type: does not use Vital Signs Vital Signs Vital Signs: 06/04/21 08:12 Temperature 97.5 F L Temperature Source Temporal Pulse Rate 100 Respiratory Rate 16 Respiratory Pattern Normal Blood Pressure 120/88 H Blood Pressure Mean 98 Blood Pressure Source Monitor Blood Pressure Position Semi-Fowlers Blood Pressure Location Left Arm Pulse Ox 97 Oxygen Delivery Method Room Air Weight Weight: 74 kg Body Mass Index (BMI) 28.9 Results Lab / Micro Data Labs: Laboratory Results - last 24 hr 06/04/21 08:08: POC Glucose 211 H
--- NOTE | 2021-06-04 11:34 | DCINST_ITS ---
Discharge Instructions Diet Discharge Diet: No restrictions Activity Discharge Activity: May Not Drive (while taking narcotic pain medications.) Dressing / Incision Call your doctor if you observe: Fever of 101 or Higher Cleanse incision/area with: Keep Dressing Clean & Dry Follow Up Care Please Follow Up With: Dominguez Goldberg MD When: Call [phone] for an appointment Test Results: Test results from this visit will be discussed in further detail at your follow-up appointment, if applicable. Discharge Plan Admission Primary Reason for Your Visit: placement of interstim therapy stage I and II Attending Provider: Dominguez Goldberg Primary Care Provider: Marylu Sanchez NP Discharge Orders/Prescriptions Prescriptions: New ciprofloxacin HCl [Cipro] 500 mg tablet 500 mg PO BID Qty: 10 RF: 0 oxycodone-acetaminophen 7.5-325 mg tablet 1 tab PO Q6H PRN (Reason: pain) 7 Days Qty: 10 RF: 0 Continued Multiple Vitamins With Iron 1 tab PO DAILY RF: 0 fluoxetine 40 mg capsule 40 mg PO QHS RF: 0 tizanidine 4 mg tablet 4 mg PO QHS RF: 0 lorazepam 0.5 mg tablet 1 mg PO BID RF: 0 levothyroxine 50 mcg tablet 50 mcg PO DAILY RF: 0 cholecalciferol (vitamin D3) 125 mcg (5,000 unit) capsule 5,000 unit PO DAILY RF: 0 dicyclomine 10 mg capsule 10 mg PO TID RF: 0 rosuvastatin 5 mg tablet 5 mg PO QHS RF: 0 Referrals / Follow Up: Dominguez Goldberg MD [STAFF PHYSICIAN] - Marylu Sanchez NP, [employer] D[employer] CURATOR-C [Primary Care Provider] - Disposition Disposition (needs filled in before D/C Order can be placed): Home, Self Care
--- NOTE | 2021-06-04 11:50 | OP.PCM_ITS ---
Report of Operation Date of Procedure: 06/04/21 Pre-Operative Diagnosis: urge incontinence, frequency Post-Operative Diagnosis: same Surgery/Procedure Performed:: Stage I and II interstim therapy implant Description of Surgical Findings:: The patient presents to the operating room for placement of stage I and II therapy. In the preoperative setting she is failed medical management for the patient urge incontinence and severe frequency of urination, a voiding diary was reviewed. The patient understands these is no guarantees that in the future the InterStim therapy will keep working to the patient's satisfaction and its always possible and it may need to have a surgical revision, change in implant, possible revision or removal of implant. We also talk about the risks of pain with stimulation, bleeding and infection or any injury to nerves or bony structures and the tailbone area. After reviewing all this with the patient in the preoperative area she signed the consent form and we proceeded with stageI and II therapy implant. Patient was brought back to the operating room and placed supine on the table and then transferred to facedown the table and underwent sedation with comfort hugging a pillow. Patient's lower back was prepped and draped in usual sterile fashion, I then palpated the bony landmarks identify the tailbone the sacrum and the pocket area was identified where the machine group leader would be implanced and also the lead. Fluoroscopy was brought in to identify the pelvis we identify the spinous processes of the pelvic bone we used a finder needle to lay across the spinous process to the approximate the location of the S3 foramen. I then identified the lateral borders of the foramen using the other spinal needle. Under this the skin was then marked and potential entrances were by approximation and bony landmarks using fluoroscopy. I then infiltrated the skin about 2 cm up above the approximation of the S3 foramen and then used the needle within the stage I InterStim kit to go straight down to the potential S3 foramen spot marching along the sacrum until the needle electrode dropped into what appeared to be the S3 foramen. Under fluoroscopy in AP and lateral veiw I confirmed that I had the lead in the S3 foramen, I then stimulated the needle and had good darrel response and had toe flexion but no calf rotation, confirm placement of the lead in the S3 Foremen. I then placed the guide through the needle the stylette was removed and then the needle was removed over the guide an incision was made into the skin and then through the incision incision and over the guide I introduced the sheath I followed the sheath under fluoroscopy until the marker on the sheath was three fourths down from the anterior plate of the sacrum. Once this was in good position then the stylette was removed and through the sheath I then introduced the stage I InterStim stimulator lead, I then checked the lead for stimulation of darrel and toe flexion at all 4 sites 0, 1, 2, 3 and had good response with darrel and toe flexion and pleased with the placement of the lead. Under fluoroscopy I captured the placement the lead this was documented both in AP and lateral views. I then removed the stylette within the lead and then pulled back in the sheath of the deployed the tines on the lead to secure the lead and the sacrum and the S3 foramen. Another fluoroscopic check was done to make sure no movement of the lead. After this was confirmed then pocket was created in the patient's lateral side where the generator pocket would be placed after the pocket was created in the subcutaneous tissue then using the guide created in the kit the end of the lead was then transferred from the insertion site to the pocket site subcutaneously. Then the generator was opened and I made sure I cleaned the lead completely I attached the lead to the generator use the screwdriver provided in the kit to then secure the bolt secure the lead to the generator prior to doing this again checked the lead 0, 1, 2, 3 and there was still good stimulation at all sites. I then placed the lead into the generator and the generator was put into the pocket that was created. I made sure that the generator was placed with InterStim labeling side up and was oriented appropriately. I then checked for impedance using the [employer] rep had the device checked in the impedance was normal with no abnormal impedance and all leads in all 4-lead sites were programmed and responded normally. The generator was then programmed to ensure good proper stimulation of the InterStim device this was done in the operating room, after complex programming was completed we finished with fluoroscopy I then closed the insertion site with subcuticular stitches and Steri-Strips and bandages and then closed the pocket with subcuticular stitches and Steri-Strips and bandages. The patient's anesthetic was reversed patient was taken back to the recovery room in stable condition and further training and education will be given to the patient regarding how to use the new InterStim therapy. CPT codes: 61261 -Lead placement CPT codes: 53639 - Batterry Generator placement Surgeon: jeffery Type of Anesthesia: General Drains: none Admit VTE Documentation VTE Present on Admission: No VTE Mechan Device Prophylaxis: SCD's VTE Pharm Prophylaxis ordered?: No
[2021-06-04] MEDS: Acetaminophen 325 MG Tablet PO (12:45)
[2021-06-04] MEDS: oxyCODONE 5 MG Tablet PO (12:45)
== END 2021-06-04 13:02 | disposition home or self-care (01) ==
LOC: SDC 07:40 → AC 07:42
PROVIDERS: PCP Nurse Practitioner Family; Referring Provider Urology; Visit Provider Urology
PROC: (CPT 64581; principal; 2021-06-04 10:00)
DX: N39.41 Urge incontinence (principal); I10 Essential (primary) hypertension; E07.9 Disorder of thyroid, unspecified; E11.9 Type 2 diabetes mellitus without complications; F32.A Depression, unspecified; F41.9 Anxiety disorder, unspecified; G47.30 Sleep apnea, unspecified; K21.9 Gastro-esophageal reflux disease without esophagitis; G43.909 Migraine, unspecified, not intractable, without status migrainosus; Z79.899 Other long term (current) drug therapy; F17.210 Nicotine dependence, cigarettes, uncomplicated
CPT/HCPCS: 64581; 64590; 95972; 72170; 76000; 82962; J7120; C1767; C1820

== ENCOUNTER 2021-06-08 19:51 | Emergency (ER) | payer MEDICARE, SELFPAY ==
[2021-06-08 19:52] VITALS: BP 113/81; PULSE 107; RESP 18; TEMP 36.2; O2SAT 97; BMI 29.0
--- NOTE | 2021-06-08 20:45 | CT_ITS ---
STUDY: CT ABDOMEN AND PELVIS WITHOUT CONTRAST REASON FOR EXAM: Female, 65 years old. Abdominal pain RADIATION DOSAGE (If Supplied By Facility): CTDIvol = ( 10.25 ) mGy, DLP = ( 566.04 ) mGycm TECHNIQUE: Transaxial images were obtained from the dome of the diaphragm to the symphysis pubis without oral contrast, and without intravenous contrast. Sagittal and coronal images were reconstructed. Individualized dose optimization techniques were used for this CT. COMPARISON: None. FINDINGS: The visualized lung bases are unremarkable aside from dependent atelectasis. The visualized portions of the heart are within normal limits. Normal liver. There are surgical clips in the gallbladder fossa consistent with a prior cholecystectomy. Normal spleen. Normal pancreas. Normal bilateral adrenal glands. Normal right kidney. Normal left kidney. Postsurgical changes noted in the stomach with a small retrocardiac hiatal hernia. No anastomotic leak. There is also surgical suture noted in a bowel loop in the left upper quadrant, no anastomotic leak. Retained stool noted in the colon. There are a few scattered sigmoid diverticula without CT evidence of acute diverticulitis. Appendix not visualized There is diffuse atherosclerotic calcification of the abdominal aorta, without a demonstrated aneurysm. Normal inferior vena cava. Normal retroperitoneum. Normal urinary bladder. Postsurgical changes noted in the anterior abdominal wall. There are diffuse degenerative changes of the visualized lumbar spine, and pelvis. CT/Abdomen/Pelvis without Cont IMPRESSION: No suspicious solid organ abnormality Postsurgical changes noted in the stomach and a small bowel loop, no anastomotic leak. There is a small retrocardiac hiatal hernia No free intraperitoneal fluid, air, or suspicious adenopathy Atherosclerosis Degenerative bony changes Electronically Signed: Ronan Garcia MD at 21:59 EST , Service support ,
--- NOTE | 2021-06-08 20:49 | EDS_ITS ---
HPI History of Present Illness Chief Complaint: Nausea/Vomiting Narrative Narrative: Patient presents to the emergency department with epigastric pain and right- sided abdominal pain. She had a bladder stimulator placed 4 days ago. She has no fever chills cough or congestion she has no dysuria. No chest pain shortness of breath cough or congestion. [facility] Medical History Ambulates with cane Anxiety Arthritis Back pain Depression Diabetes Gastric reflux History of edema History of hiatal hernia History of pain when walking History of stress test Hypertension Injury of back Injury of head and neck Leg cramps Marijuana use Migraine headache Sleep apnea Smoker Thyroid disease Wears dentures Wears glasses Wears hearing aid Home Medications Multiple Vitamins With Iron 1 tab PO DAILY 07/24/16 [History Last Taken 01/12/20] cholecalciferol (vitamin D3) 5,000 unit PO DAILY 05/28/21 [History Last Taken Unknown] dicyclomine 10 mg PO TID 05/28/21 [History Last Taken Unknown] fluoxetine 40 mg PO QHS 05/28/21 [History Last Taken Unknown] levothyroxine 50 mcg PO DAILY 05/28/21 [History Last Taken Unknown] lorazepam 1 mg PO BID 05/28/21 [History Last Taken Unknown] rosuvastatin 5 mg PO QHS 05/28/21 [History Last Taken Unknown] tizanidine 4 mg PO QHS 05/28/21 [History Last Taken Unknown] ciprofloxacin HCl [Cipro] 500 mg PO BID #10 tab 06/04/21 [Rx Last Taken Unknown] oxycodone-acetaminophen 1 tab PO Q6H PRN 7 Days #10 tab 06/04/21 [Rx Last Taken Unknown] omeprazole 40 mg PO DAILY #14 cap 06/08/21 [Rx Last Taken Unknown] ondansetron 4 mg PO Q8H #10 tab 06/08/21 [Rx Last Taken Unknown] Allergy/AdvReac Type Severity Reaction Status Date / Time No Known Allergies Allergy Verified 06/08/21 19:52 Surgical History History of cardiac catheterization Hx of bilateral breast reduction surgery Hx of foot surgery Hx of gastric bypass Hx of hernia repair Hx of hysterectomy Hx of surgical procedure Social History Smoking Status: Current some day smoker tobacco type: cigarettes substance use type: does not use ROS ROS ED ROS Narrative Past medical history: Reviewed Medications: Reviewed Social history: Noncontributory Review of systems: All systems negative except as indicated General: No fever Eyes: No visual changes ENT: No upper airway congestion, normal voice Neck: No neck pain Cardiovascular: No chest pain Respiratory: No shortness of breath or cough GI: Abdominal pain and nausea as in HPI Genitourinary: No dysuria Musculoskeletal: Denies myalgias no difficulty with ambulation Skin: No rash Neurological: No memory loss, confusion or any focal weakness Psych: No recent behavioral changes Hematologic: No easy bleeding or easy bruising EXAM Physical Exam Narrative Exam Narrative: Physical exam General: Patient appears uncomfortable Head: Normocephalic, Atraumatic Eyes: Conjunctiva not pale ENT: Slightly dry mucous membranes Neck: Supple, Nontender, No lymphadenopathy Cardiovascular: Regular rate, Regular rhythm Respiratory: No distress, CTA bilaterally Abdomen: Soft, mostly epigastric pain. No right upper quadrant pain. Negative Hollins's. Back: She has an incision site on the right flank region, I removed the bandage it is clean dry and intact no evidence of infection. Extremities: Nontender, No edema Skin: Normal color, No rash Neurological: Alert, Normal Strength, Normal Sensation Const Vital Signs: 06/08/21 19:52 Temperature 97.2 F L Temperature Source Temporal Pulse Rate 107 H Respiratory Rate 18 Blood Pressure 113/81 H Blood Pressure Mean 91 Pulse Ox 97 Oxygen Delivery Method Room Air MDM MDM MDM Narrative Medical decision making narrative: Patient has an unremarkable work-up. She appears well she improved. Likely has gastritis which I will treat. Lab Data Labs: Laboratory Results - last 24 hr 06/08/21 06/08/21 06/08/21 20:09 20:09 21:53 WBC 7.8 RBC 4.49 Hgb 13.7 Hct 40.6 MCV 90.4 MCH 30.5 MCHC 33.7 RDW Std Deviation 42.1 RDW Coeff of Peyton 12.8 Plt Count 192 MPV 11.2 Immature Gran % (Auto) 0.500 Neut % (Auto) 65.6 Lymph % (Auto) 24.6 [place] % (Auto) 6.8 Eos % (Auto) 1.7 Baso % (Auto) 0.8 Absolute Neuts (auto) 5.1 Absolute Lymphs (auto) 1.92 Nucleated RBC % 0 Sodium 138 Potassium 3.8 Chloride 102 Carbon Dioxide 29.0 Anion Gap 7 BUN 6 L Creatinine 0.80 Estim Creat Clear Calc 57.22 Est GFR (MDRD) Af Amer 93 Est GFR (MDRD) Non-Af 77 BUN/Creatinine Ratio 7.5 L Glucose 197 H Calcium 9.3 Total Bilirubin 0.40 AST 16 ALT 18 Alkaline Phosphatase 119 H Total Protein 7.6 Albumin 3.5 Globulin 4.1 Albumin/Globulin Ratio 0.9 Lipase 54 L Urine Color Yellow Urine Clarity Sl. Cloudy Urine pH 7.0 Ur Specific Effie 1.010 Urine Protein Negative Urine Glucose (UA) Normal Urine Ketones 5 H Urine Occult Blood Negative Urine Nitrite Negative Urine Bilirubin Negative Urine Urobilinogen Normal Ur Leukocyte Esterase Negative Urine RBC 0 SEEN Urine WBC 0 SEEN Ur Squamous Epith Cells 0 SEEN Urine Bacteria 0 SEEN Urine Mucus 0 SEEN Radiography Diagnostic Testing: Clinical Impression(s) from Imaging Studies Abdomen/Pelvis CT 06/08/21 20:45 IMPRESSION: No suspicious solid organ abnormality Postsurgical changes noted in the stomach and a small bowel loop, no anastomotic leak. There is a small retrocardiac hiatal hernia No free intraperitoneal fluid, air, or suspicious adenopathy Atherosclerosis Degenerative bony changes Electronically Signed: Ronan Garcia MD at 21:59 EST , Service support , Discharge Plan Triage Chief Complaint: Nausea/Vomiting ED Provider: Shahzad Wang Dx/Rx/DC Orders Clinical Impression: Nausea & vomiting, Gastritis Instructions: ED Gastritis (Adult) Prescriptions: New ondansetron 4 mg tablet,disintegrating 4 mg PO Q8H Qty: 10 RF: 0 omeprazole 40 mg capsule,delayed release(DR/EC) 40 mg PO DAILY Qty: 14 RF: 0 No Action Multiple Vitamins With Iron 1 tab PO DAILY RF: 0 fluoxetine 40 mg capsule 40 mg PO QHS RF: 0 tizanidine 4 mg tablet 4 mg PO QHS RF: 0 lorazepam 0.5 mg tablet 1 mg PO BID RF: 0 levothyroxine 50 mcg tablet 50 mcg PO DAILY RF: 0 cholecalciferol (vitamin D3) 125 mcg (5,000 unit) capsule 5,000 unit PO DAILY RF: 0 dicyclomine 10 mg capsule 10 mg PO TID RF: 0 rosuvastatin 5 mg tablet 5 mg PO QHS RF: 0 ciprofloxacin HCl [Cipro] 500 mg tablet 500 mg PO BID Qty: 10 RF: 0 oxycodone-acetaminophen 7.5-325 mg tablet 1 tab PO Q6H PRN (Reason: pain) 7 Days Qty: 10 RF: 0 Primary Care Provider: Marylu Sanchez NP Referrals: Marylu Sanchez NP, [facility] [Primary Care Provider] - 2 Days Disposition Disposition: Home, Self Care
[2021-06-08] MEDS: 0.9% Normal Saline 1,000 ML 1000 ML IV (21:00)
[2021-06-08] MEDS: Ondansetron 4 MG/2 ML Vial IV (21:01)
[2021-06-08] MEDS: Morphine 4 MG/ML Syringe IV (21:02)
[2021-06-08 21:16] LABS: ALB/GLOB Ratio 0.9 RATIO (0.9-2.4); AST(SGOT) 16 U/L (15-37); Absolute Lymphocyte Count 1.92 X10^3/uL (0.83-4.51); Absolute Neutrophil Count 5.1 X10^3/uL (2.0-7.7); Alanine Aminotransfer ALT/SGPT 18 U/L (13-56); Albumin, Serum 3.5 g/dL (3.2-5.0); Alkaline Phosphatase 119 U/L (45-117); Anion Gap 7 (5-15); BUN 6 mg/dL (7-18); BUN/Creat Ratio 7.5 RATIO (10-20); Basophil# 0.06 X10^3/uL; Basophil% 0.8 % (0-1); Calcium,Total 9.3 mg/dL (8.5-10.1); Chloride 102 mmol/L (98-107); EST Glomerular Filtration Rate 77 mL/min (>60); Eosinophil# 0.13 X10^3/uL; Eosinophils% 1.7 % (0-5); Est Glom Filt Rate - Afr Amer 93 mL/min (>60); Estimated Creatinine Clearance 57.22 ml/min; Globulin 4.1 g/dL (2.2-4.2); Glucose 197 mg/dL (74-106); Hematocrit 40.6 % (37-47); Hemoglobin 13.7 g/dL (12.0-15.0); Lipase 54 U/L (73-393); Lymphocyte # 1.92 X10^3/ul (0.83-4.51); Lymphocyte % 24.6 % (19-41); Mean Corp Hgb Conc 33.7 g/dL (32-36); Mean Corpuscular Hgb 30.5 pg (27.0-32.0); Mean Corpuscular Volume 90.4 fL (81-99); Mean Platelet Vol. 11.2 fl (6.2-12.0); Monocyte# 0.53 X10^3/uL; Monocyte% 6.8 % (0-10); NRBC Flagged by Analyzer 0 % (0-5); Neutrophil # 5.14 X10^3/uL (2.7-7.7); Neutrophil % 65.6 % (47-70); Platelet Count 192 K/mm3 (150-450); Potassium 3.8 mmol/L (3.5-5.1); Protein, Total 7.6 g/dL (6.4-8.2); RBC Distribution Width CV 12.8 % (11.6-14.6); RBC Distribution Width SD 42.1 fl (35.1-43.9); Red Blood Count 4.49 M/mm3 (4.2-5.4); Sodium Level 138 mmol/L (136-145); White Blood Count 7.8 K/mm3 (4.4-11.0)
[2021-06-08] MEDS: Famotidine 200 MG/20 ML MDV 20 MG in 0.9% Normal Saline (Pres. free 8 ML 300 MG IV (21:19)
[2021-06-08 21:58] LABS: Bacteria 0 SEEN /hpf (None Seen); Mucous, Urine 0 SEEN /hpf (<or=2+); Red Blood Cells-Urine 0 SEEN /hpf (0-5); Squamous Epithelial Cells - UA 0 SEEN /hpf (5-10); White Blood Cells 0 SEEN /hpf (0-5)
[2021-06-08 22:00] LABS: Color, Urine Yellow (Yellow); Glucose, Dipstick Normal (Normal); Ketone-Dipstick 5 mg/dl (Negative); Leukocyte Esterase-Dipstick Negative /ul (Negative); Nitrite-Dipstick Negative (Negative); Occult Blood-Urine Negative /ul (Negative); Protein-Dipstick Negative (Negative); Urine Bilirubin Dipstick Negative (Negative); Urine Clarity Sl. Cloudy (Clear); Urine Urobilinogen Normal (Normal)
[2021-06-08 22:37] VITALS: BP 118/72; PULSE 63; RESP 18; O2SAT 98
== END 2021-06-08 23:09 | disposition home or self-care (01) ==
PROVIDERS: Emergency Provider Emergency Medicine; PCP Nurse Practitioner Family
DX: K29.70 Gastritis, unspecified, without bleeding (principal); I10 Essential (primary) hypertension; K21.9 Gastro-esophageal reflux disease without esophagitis; E11.9 Type 2 diabetes mellitus without complications; F32.A Depression, unspecified; F41.9 Anxiety disorder, unspecified; G47.30 Sleep apnea, unspecified; M19.90 Unspecified osteoarthritis, unspecified site; G43.909 Migraine, unspecified, not intractable, without status migrainosus; Z79.899 Other long term (current) drug therapy; F17.210 Nicotine dependence, cigarettes, uncomplicated
CPT/HCPCS: 74176; 80053; 81001; 83690; 85025; 96361; 96374; 96375; 99283; J7030; A4216; J2405; J3490

== ENCOUNTER 2021-10-28 08:46 | Outpatient (CLI) | payer MEDICARE, SELFPAY ==
--- NOTE | 2021-10-28 08:53 | EKG12_ITS ---
Test Reason : PREOP Blood Pressure : / mmHG Vent. Rate : 074 BPM Atrial Rate : 074 BPM P-R Int : 112 ms QRS Dur : 080 ms QT Int : 386 ms P-R-T Axes : 063 054 053 degrees QTc Int : 428 ms Normal sinus rhythm Normal ECG Confirmed by JENNY HOOD, ADENIKE ([id number]), advertising editor MARLON CHAVARRIA ([id number]) on 10/29/2021 12:28:19 PM Referred By: Dominguez Goldberg Confirmed By:ADENIKE ALVARADO MD
== END 2021-10-28 23:59 | disposition home or self-care (01) ==
PROVIDERS: PCP Nurse Practitioner Family; Referring Provider Urology; Visit Provider Urology
DX: Z01.810 Encounter for preprocedural cardiovascular examination (principal)
CPT/HCPCS: 93005

== ENCOUNTER 2023-06-04 13:07 | Emergency (ER) | payer MEDICARE, SELFPAY ==
[2023-06-04 13:09] VITALS: BP 153/80; PULSE 87; RESP 20; TEMP 36.8; O2SAT 100; BMI 23.8
--- NOTE | 2023-06-04 14:59 | EKG12_ITS ---
Test Reason : ABNL PAIN Blood Pressure : / mmHG Vent. Rate : 083 BPM Atrial Rate : 083 BPM P-R Int : 112 ms QRS Dur : 076 ms QT Int : 392 ms P-R-T Axes : 069 052 058 degrees QTc Int : 460 ms Normal sinus rhythm Nonspecific ST abnormality Abnormal ECG Confirmed by URSZULA HOOD, DARION ([id number]), editor in chief newspaper ALVIN PARTIDA ([id number]) on 06/09/2023 12:25:14 PM Referred By: SHERIDAN Confirmed By:DARION SEAMAN MD
[2023-06-04 15:10] LABS: Absolute Lymphocyte Count 2.09 X10^3/uL (0.83-4.51); Absolute Neutrophil Count 5.8 X10^3/uL (2.0-7.7); Basophil# 0.05 X10^3/uL; Basophil% 0.6 % (0-1); Eosinophil# 0.27 X10^3/uL; Eosinophils% 3.1 % (0-5); Hematocrit 36.4 % (37-47); Lymphocyte # 2.09 X10^3/ul (0.83-4.51); Lymphocyte % 23.6 % (19-41); Mean Corpuscular Hgb 31.3 pg (27.0-32.0); Mean Corpuscular Volume 94.8 fL (81-99); Mean Platelet Vol. 10.9 fl (6.2-12.0); Monocyte# 0.65 X10^3/uL; Monocyte% 7.4 % (0-10); NRBC Flagged by Analyzer 0 % (0-5); Neutrophil # 5.75 X10^3/uL (2.7-7.7); Platelet Count 207 K/mm3 (150-450); RBC Distribution Width CV 14.2 % (11.6-14.6); RBC Distribution Width SD 49.2 fl (35.1-43.9); Red Blood Count 3.84 M/mm3 (4.2-5.4); White Blood Count 8.8 K/mm3 (4.4-11.0)
--- NOTE | 2023-06-04 15:18 | CT_ITS ---
INDICATION: abdominal pain EXAMINATION: CTA abdomen and pelvis - TECHNIQUE: Routine abdominal CT angiogram protocol was performed with IV contrast. MIP images provided. A radiation dose optimization technique was used for this scan. IV Contrast dosage and agent: COMPARISON: 06/08/2021. FINDINGS: Lung bases: Normal. Liver: Normal. No bile ductal dilatation. Gallbladder: Cholecystectomy.. Spleen: Normal. Adrenal gland: Normal. Kidneys: Normal. No hydronephrosis or stone formation. Pancreas:Normal. Bowel gas pattern: Evaluation of the GI tract is limited by absence of oral contrast. Previous gastric bypass. Cannot exclude stomach wall thickening. No dilated loops of bowel or evidence for obstruction. Cannot exclude segmental thickening of the bruno of the small or large bowel. Cannot exclude enteritis or colitis. Moderate diffuse fecal retention. Appendix: Appendix is not definitely seen.. Free air: None. Free fluid: None. Pelvis: Pelvic organs: Hysterectomy. No mass lesion noted. Bone survey: No aggressive bony lesions. No acute fractures. Adenopathy: No significant pathologic adenopathy detected. Other: None. Vascular: Normal vascular anatomy, calcified plaque. No aneurysm or dissection. CT/CTA Abd/Pelvis W/WO Contrast IMPRESSION: No definite acute or significant abnormality seen. Electronically Signed: Almas Sawyer MD at 16:30 EST ,
[2023-06-04 15:25] LABS: Mucous, Urine 0 SEEN /hpf (<or=2+); Red Blood Cells-Urine 0 SEEN /hpf (0-5)
[2023-06-04 15:28] LABS: AST(SGOT) 23 U/L (15-37); Alanine Aminotransfer ALT/SGPT 27 U/L (13-56); Alkaline Phosphatase 99 U/L (45-117); Anion Gap 5 (5-15); BUN 15 mg/dL (7-18); BUN/Creat Ratio 20.9 RATIO (10-20); Calcium,Total 8.8 mg/dL (8.5-10.1); Chloride 110 mmol/L (98-107); Creatinine, Serum 0.72 mg/dL (0.55-1.02); EST Glomerular Filtration Rate 86 mL/min (>60); Est Glom Filt Rate - Afr Amer 104 mL/min (>60); Estimated Creatinine Clearance 44.54 ml/min; Globulin 3.1 g/dL (2.2-4.2); Glucose 114 mg/dL (74-106); Lipase 26 U/L (13-75); Potassium 3.6 mmol/L (3.5-5.1); Protein, Total 6.1 g/dL (6.4-8.2); Sodium Level 144 mmol/L (136-145); Troponin-I HS 7 pg/mL (3.0-54.0)
[2023-06-04] MEDS: Haloperidol Lactate 5 MG/ML Vial 1 MG IV (15:33)
[2023-06-04] MEDS: Metoclopramide 10 MG/2 ML Vial 5 MG IV (15:33)
[2023-06-04 15:38] LABS: Color, Urine Yellow (Yellow); Glucose, Dipstick Normal (Normal); Ketone-Dipstick 5 mg/dl (Negative); Leukocyte Esterase-Dipstick 25 /ul (Negative); Nitrite-Dipstick Negative (Negative); Occult Blood-Urine 10 /ul (Negative); Protein-Dipstick 15 mg/dl (Negative); Specific Gravity, Urine 1.015 (1.002-1.030); Urine Bilirubin Dipstick Negative (Negative); Urine Clarity Sl. Cloudy (Clear); Urine Urobilinogen 4 mg/dl (Normal)
[2023-06-04 15:40] LABS: Lactic Acid 0.8 mmol/L (0.4-1.9)
[2023-06-04 15:57] LABS: Calcium Oxalate Crystals Ur 2+ /hpf (<or=2+)
[2023-06-04 15:58] LABS: Bacteria 4+ /hpf (None Seen); Squamous Epithelial Cells - UA 0-5 SEEN /hpf (5-10)
[2023-06-04 15:59] LABS: White Blood Cells 0-5 SEEN /hpf (0-5)
[2023-06-04] MEDS: Mag Hydrox/Al Hydrox/Simeth 30 ML UDC PO (16:45)
--- NOTE | 2023-06-04 17:01 | ED.VIS.GI ---
HPI HPI - GI History of Present Illness Chief Complaint: Abd Pain Informant: patient Narrative Narrative: Patient is a 67-year-old female with history of prior gastric bypass, diabetes mellitus and chronic abdominal pain presenting with worsening of her abdominal pain. She states is diffuse and does sometimes radiate to her chest. She does have some intermittent nausea but does not report any vomiting. Denies any change in her bowel movements. Waxes and wanes in intensity but seems to be worse as the day goes on. She saw Dr. Langston and had what she thinks is a scope/EGD a few months ago and was told there was not anything on it. She has also seen Dr. Vazquez, and Dr. Hatch. She tried to get a hold of Dr. Hatch who said that he would see her if her symptoms are worse but could get a hold of him today. She notes that she previously was on Trulicity but is now on Ozempic. She describes a burning sensation when she eats. Does take sucralfate as well as pantoprazole and a lot of other medicines does not entirely sure what she is on. [facility] Medical History Ambulates with cane Anxiety Arthritis Back pain Depression Diabetes Gastric reflux History of edema History of hiatal hernia History of pain when walking History of stress test Hypertension Injury of back Injury of head and neck Leg cramps Marijuana use Migraine headache Sleep apnea Smoker Thyroid disease Wears dentures Wears glasses Wears hearing aid Home Medications Multiple Vitamins With Iron 1 tab PO DAILY 07/24/16 [History Last Taken 01/12/20] cholecalciferol (vitamin D3) 125 mcg (5,000 unit) capsule 5,000 unit PO DAILY 05/28/21 [History Last Taken Unknown] dicyclomine 10 mg capsule 10 mg PO TID 05/28/21 [History Last Taken Unknown] fluoxetine 40 mg capsule 40 mg PO QHS 05/28/21 [History Last Taken Unknown] levothyroxine 50 mcg tablet 50 mcg PO DAILY 05/28/21 [History Last Taken Unknown] lorazepam 0.5 mg tablet 1 mg PO BID 05/28/21 [History Last Taken Unknown] rosuvastatin 5 mg tablet 5 mg PO QHS 05/28/21 [History Last Taken Unknown] tizanidine 4 mg tablet 4 mg PO QHS 05/28/21 [History Last Taken Unknown] ciprofloxacin HCl 500 mg tablet (Cipro) 500 mg PO BID #10 tabs 06/04/21 [Rx Last Taken Unknown] oxycodone-acetaminophen 7.5 mg-325 mg tablet 1 tab PO Q6H PRN pain 7 days #10 tabs 06/04/21 [Rx Last Taken Unknown] omeprazole 40 mg capsule,delayed release 40 mg PO DAILY #14 caps 06/08/21 [Rx Last Taken Unknown] ondansetron 4 mg disintegrating tablet 4 mg PO Q8H #10 tabs 06/08/21 [Rx Last Taken Unknown] pantoprazole 40 mg tablet,delayed release (Protonix) 40 mg PO DAILY #14 tabs 06/08/21 [Rx Last Taken Unknown] Allergy/AdvReac Type Severity Reaction Status Date / Time cephalexin [From Keflex] Allergy PT UNSURE Verified 06/04/23 13:09 OF REACTION Surgical History History of cardiac catheterization Hx of bilateral breast reduction surgery Hx of foot surgery Hx of gastric bypass Hx of hernia repair Hx of hysterectomy Hx of surgical procedure Social History Smoking Status: Current some day smoker tobacco type: cigarettes substance use type: does not use ROS ROS ED Constitutional Constitutional ED: Denies chills or fever(s) Cardiovascular Cardiovascular: Reports chest pain Respiratory/Chest Respiratory/Chest: Denies cough or dyspnea Gastrointestinal Gastrointestinal: Reports abdominal pain and nausea; Denies melena or vomiting Musculoskeletal Musculoskeletal: Denies arthralgias or myalgias Integumentary Denies rash Neurologic Neurologic: Denies headache(s) or weakness Hematologic/Lymphatic Hematologic/Lymphatic: Denies easy bleeding or easy bruising EXAM Physical Exam Const Vital Signs: 06/04/23 13:09 Temperature 98.2 F Temperature Source Temporal Pulse Rate 87 Respiratory Rate 20 H Blood Pressure 153/80 H Blood Pressure Mean 104 Pulse Ox 100 Oxygen Delivery Method Room Air Positive well nourished and well developed General Appearance ED: well developed and NAD HEENT Reports moist mucous membranes normocephalic and atraumatic Eyes PERRL Neck supple Resp normal respiratory effort and clear to auscultation bilaterally Cardio regular rate and regular rhythm GI non-tender and non-distended GI Narrative: Patient grabbing and squeezing her abdomen but pain does not seem reproduced with any direct palpation Auscultation: normoactive bowel sounds Palpation: soft; Negative for tender or guarding Extremity full ROM Neuro moves all extremities Sensorium / Orientation: alert, oriented to person, oriented to place and oriented to time Psych mental status grossly normal and thought process normal MDM MDM MDM Narrative Medical decision making narrative: Patient is evaluated for worsening of her chronic abdominal pain. She states she been doing with this pain for at least 6 months and has been seen by multiple surgeons. She has had an EGD with Dr. Nguyen. She is not sure if she has had a gastric emptying study or further work-up. She is on Carafate and antacids with no relief. Also from chart review looks like she is on pencil. She has a relatively benign abdominal exam with vital signs significant for mild hypertension. Given the chronicity of her pain I am hesitant to give her opioids as she is not on long-term opioids. We will trial Reglan and Haldol for symptom control. Patient does not have significant movement is then given a GI cocktail with improvement of her symptoms. Differential includes pancreatitis, gastritis, peptic ulcer disease, gastroparesis, small bowel obstruction, colitis as well as referred cardiac pain. I think the latter diagnoses are less likely. EKG is obtained which shows no acute ischemic process. High since he troponin is normal at 7 and I do not think this is referred cardiac symptoms. CBC is largely normal with no leukocytosis or anemia. She is a normal BUN to creatinine ratio and a normal kidney function. Her liver enzymes are normal. Low suspicion for occult GI bleed or acute dehydration. Urinalysis is consistent with contamination. CT of the abdomen pelvis with arterial contrast is obtained to evaluate for possible SMA syndrome or other intra-abdominal process. CT is negative for anything acute. She does have some mild plaques but do not think this explains the extent of her symptoms. In addition her lactate is normal and have a low suspicion for acute ischemia. At this time the exact etiology of her symptoms not clear but I do think she is stable for outpatient follow-up/discharge Patient be discharged home to follow-up outpatient with GI. She verbalized agreement understand this plan. Lab Data Attestation: I reviewed the patient's lab results. Labs: Laboratory Results - last 24 hr 06/04/23 06/04/23 15:00 15:15 WBC 8.8 RBC 3.84 L Hgb 12.0 Hct 36.4 L MCV 94.8 MCH 31.3 MCHC 33.0 RDW Std Deviation 49.2 H RDW Coeff of Peyton 14.2 Plt Count 207 MPV 10.9 Immature Gran % (Auto) 0.300 Neut % (Auto) 65.0 Lymph % (Auto) 23.6 Slope % (Auto) 7.4 Eos % (Auto) 3.1 Baso % (Auto) 0.6 Absolute Neuts (auto) 5.8 Absolute Lymphs (auto) 2.09 Nucleated RBC % 0 Sodium 144 Potassium 3.6 Chloride 110 H Carbon Dioxide 29.0 Anion Gap 5 BUN 15 Creatinine 0.72 Estim Creat Clear Calc 44.54 Est GFR (MDRD) Af Amer 104 Est GFR (MDRD) Non-Af 86 BUN/Creatinine Ratio 20.9 H Glucose 114 H Lactic Acid 0.8 Calcium 8.8 Total Bilirubin 0.30 AST 23 ALT 27 Alkaline Phosphatase 99 Troponin I High Sens 7 Total Protein 6.1 L Albumin 3.0 L Globulin 3.1 Albumin/Globulin Ratio 1.0 Lipase 26 Urine Color Yellow Urine Clarity Sl. Cloudy Urine pH 6.0 Ur Specific [place] 1.015 Urine Protein 15 H Urine Glucose (UA) Normal Urine Ketones 5 H Urine Occult Blood 10 H Urine Nitrite Negative Urine Bilirubin Negative Urine Urobilinogen 4 H Ur Leukocyte Esterase 25 H Urine RBC 0 SEEN Urine WBC 0-5 SEEN Ur Squamous Epith Cells 0-5 SEEN Calcium Oxalate Crystal 2+ Urine Bacteria 4+ Urine Mucus 0 SEEN Radiography Diagnostic Testing: Clinical Impression(s) from Imaging Studies Abdomen/Pelvis CTA 06/04/23 15:18 IMPRESSION: No definite acute or significant abnormality seen. Electronically Signed: Almas Sawyer MD at 16:30 EST , Rhythm Strip Rhythm Strip: Sinus Rhythm Rate: 83 Ectopy: None EKG Initial EKG: Attestation: I personally reviewed and interpreted this EKG as follows: Interpretation: Sinus Rhythm Comments: Normal sinus rhythm at a rate of 83 bpm Normal axis Normal intervals Normal ST segments Prior EKG tracings: available for review Prior: Unchanged Discharge Plan Triage Chief Complaint: Abd Pain ED Provider: Grecia Meyer Dx/Rx/DC Orders Clinical Impression: Abdominal pain of unknown etiology Instructions: ED Abdominal Pain Unkn Cause Fem Prescriptions: No Action Multiple Vitamins With Iron 1 tab PO DAILY fluoxetine 40 mg capsule 40 mg PO QHS Patient Comments: TAKE 1 CAPSULE BY MOUTH EVERY DAY tizanidine 4 mg tablet 4 mg PO QHS Patient Comments: TAKE 1 TABLET BY MOUTH ONCE DAILY AT BEDTIME lorazepam 0.5 mg tablet 1 mg PO BID Patient Comments: Take 1 tablet by mouth twice daily as needed for up to 30 days. levothyroxine 50 mcg tablet 50 mcg PO DAILY Patient Comments: TAKE 1 TABLET BY MOUTH ONCE DAILY ON AN EMPTY STOMACH for FOR THYROID cholecalciferol (vitamin D3) 125 mcg (5,000 unit) capsule 5,000 unit PO DAILY Patient Comments: Take 1 capsule by mouth once daily. dicyclomine 10 mg capsule 10 mg PO TID Patient Comments: TAKE 1 CAPSULE BY MOUTH FOUR TIMES DAILY BEFORE MEALS and AT BEDTIME rosuvastatin 5 mg tablet 5 mg PO QHS Patient Comments: TAKE 1 TABLET BY MOUTH EVERY DAY AT BEDTIME ciprofloxacin HCl [Cipro] 500 mg tablet 500 mg PO BID Qty: 10 0RF oxycodone-acetaminophen 7.5-325 mg tablet 1 tab PO Q6H PRN (Reason: pain) 7 Days Qty: 10 0RF ondansetron 4 mg tablet,disintegrating 4 mg PO Q8H Qty: 10 0RF omeprazole 40 mg capsule,delayed release(DR/EC) 40 mg PO DAILY Qty: 14 0RF pantoprazole [Protonix] 40 mg tablet,delayed release (DR/EC) 40 mg PO DAILY Qty: 14 0RF Primary Care Provider: Marylu Sanchez NP Referrals: Hubert Hatch MD [Non-Staff] - As soon as possible Marylu Sanchez NP, HOCKEY INSTRUCTOR-C [Primary Care Provider] - Disposition Disposition: Home, Self Care Discharge Date/Time: 06/04/23 17:21
[2023-06-04 17:20] VITALS: BP 148/47; PULSE 80; RESP 16; O2SAT 100
== END 2023-06-04 17:21 | disposition home or self-care (01) ==
PROVIDERS: Emergency Provider Emergency Medicine; PCP Nurse Practitioner Family; Visit Provider Emergency Medicine
DX: R10.9 Unspecified abdominal pain (principal); E11.9 Type 2 diabetes mellitus without complications; F17.210 Nicotine dependence, cigarettes, uncomplicated; I10 Essential (primary) hypertension; F32.A Depression, unspecified; K21.9 Gastro-esophageal reflux disease without esophagitis; Z79.899 Other long term (current) drug therapy; Z90.710 Acquired absence of both cervix and uterus
CPT/HCPCS: 74174; 80053; 81001; 83605; 83690; 84484; 85025; 93005; 96374; 96375; 99283; Q9967; A4216

== ENCOUNTER 2024-11-03 05:05 | Day surgery (SDC) | payer MEDICARE, SELFPAY ==
--- NOTE | 2024-10-27 13:10 | PAT.ANESEVAL ---
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 When Was Last Pacemaker Check QUESTION #4 FULL TEXT: You/Your Family Experience fever (hyperthermia) with Anesthesia Last Oral Intake Last Oral intake: Last Oral Intake NPO since Meds taken in AM with sips of water? Meds patient instructed to take am of surgery PONV PONV - developmental electronics assembler: PONV - developmental electronics assembler Female Yes 10/27/24 09:39 HX of Motion Sickness No 10/27/24 09:39 HX of N/V After Surgery No 10/27/24 09:39 Non-Smoker No 10/27/24 09:39 Duration of Surgery greater No 10/27/24 09:39 than 60 minutes Number of Risk Factors 1 10/27/24 09:39 PONV Score Low Risk 10/27/24 09:39 Height & Weight Height & Weight: Anesthesia: Height & Weight Height 5 ft 3 in 06/04/23 13:09 Respiratory Assessment Respiratory Assessment - developmental electronics assembler: Respiratory Tract Infection Hx - developmental electronics assembler Hx Respiratory Tract Infection No 10/27/24 09:39 STOP Sleep Apnea STOP Sleep Apnea - developmental electronics assembler: STOP Sleep Apnea - developmental electronics assembler Hx Hypertension Yes: MANY YRS AGO PRIOR TO 10/27/24 09:39 WEIGHT LOSS Hx Sleep Apnea Yes 10/27/24 09:39 CPAP Yes: PRIOR TO WEIGHT LOSS 10/27/24 09:39 BIPAP No 10/27/24 09:39 Do you snore loudly (louder than talking or can be heard Do you often feel tired/ fatigued/ sleepy during daytime? Has anyone observed you stop breathing during sleep? STOP Results Positive 10/27/24 09:39 QUESTION #5 FULL TEXT : Do you snore loudly (louder than talking or can be heard through closed doors)? 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 Specify any problems Hx of Preganancy in last 3 No 10/27/24 09:39 Months Nurse Filling Out Transfusion MGRILAUREL 10/27/24 09:39 & Questions: Date: 10/27/24 10/27/24 09:39 Time: 09:49 10/27/24 09:39 Patient unable to answer at this time (ie. confused, unrespo /Reproduction History /Reproductive History - developmental electronics assembler: /Reproductive Hx- developmental electronics assembler Hx Now Gestational Age (in weeks): EDC: Hx Hx Para Hx Section SAB No 08/28/24 14:46 PFSH Medical History (Updated 10/27/24 @ 10:00 by Ethel Solomon) Bipolar disorder Difficulty swallowing Shortness of breath on exertion History of irregular heartbeat Bladder disease Low iron High cholesterol Easy bruising Restless legs Pain Syncope Vapes nicotine containing substance Wears hearing aid Wears dentures Wears glasses Marijuana use Diabetes Ambulates with cane Thyroid disease Arthritis Injury of back Back pain Injury of head and neck History of hiatal hernia Smoker Sleep apnea Leg cramps History of pain when walking History of stress test Hypertension Anxiety Depression Home Medications ?Medication ?Instructions ?Recorded ?Last Taken ?Type levothyroxine 50 mcg tablet 50 mcg PO DAILY 05/28/21 Unknown History alprazolam 0.5 mg tablet 0.5 mg PO QDAY PRN anxiety 05/19/24 Unknown History ascorbic acid (vitamin C) 250 mg 250 mg PO QDAY 05/19/24 Unknown History tablet diclofenac sodium 75 mg 75 mg PO DAILY PRN pain 05/19/24 Unknown History tablet,delayed release simvastatin 20 mg tablet 20 mg PO QHS 05/19/24 Unknown History amitriptyline 25 mg tablet 50 mg PO QHS 07/28/24 Unknown History dulaglutide 0.75 mg/0.5 mL 1.5 mg subcut FR 07/28/24 10/27/24 History subcutaneous pen injector (Trulicity) lubiprostone 8 mcg capsule 8 mcg PO BID #180 caps 08/29/24 Unknown Rx (Amitiza) acetaminophen 500 mg capsule 1,000 mg PO BID 10/27/24 Unknown History ascorbic acid (vitamin C) 125 mg 125 mg PO DAILY 10/27/24 Unknown History chewable tablet (VitaJoy Daily C) citalopram 10 mg tablet (Celexa) 10 mg PO DAILY 10/27/24 Unknown History Allergy/AdvReac Type Severity Reaction Status Date / Time cephalexin (From Keflex) Allergy PT UNSURE Verified 10/27/24 09:38 OF REACTION Surgical History (Updated 10/27/24 @ 10:00 by Ethel Solomon) Hx of colonoscopy History of esophagogastroduodenoscopy (EGD) History of surgery on wrist History of cardiac catheterization Hx of hysterectomy Hx of surgical procedure Hx of gastric bypass Hx of bilateral breast reduction surgery Hx of hernia repair Hx of foot surgery Social History Smoking Status: Current every day smoker tobacco type: cigarettes and e-cigarettes substance use type: does not use Audit: Pertinent Findings Pertinent Findings EKG Perinent findings: 06/04/2023. Normal sinus rhythm. [address] abnormality. Recommendation Anesthesia Recommendation Anesthesia recommendation: OPTIMIZED for anesthesia
[2024-11-03] VITALS (8 sets, daily range): BP systolic 101–142; BP diastolic 60–71; PULSE 75–105; RESP 16–17; TEMP 36.1–36.6; O2SAT 95–100; BMI 25.0
[2024-11-03 06:20] LABS: Bedside Glucose 112 mg/dL (74-106)
--- NOTE | 2024-11-03 07:03 | PCM.PRE.AN2 ---
ASA Classification* ASA Classification ASA Classification: 2 Assessment & Plan Anesthesia* Anesthesia Assessment Anesthesia Assessment: Discussed sedation and/or anesthesia options, risks, benefits, and alternatives with patient/parents/legal guardian/POA. Questions invited. The patient/parents/legal guardian/POA seems to understand and agrees to proceed with anesthesia plan. Reviewed the physical assessment, medical history, allergy history and patient home medications list prior to surgery/procedure/anesthetic and documented any changes. Performed airway and anesthesia risk assessments. Anesthesia Type Anesthesia Type: MAC Anesthesia Focused Assessment* Temperature: 97.0 F Pulse Rate: 87 Blood Pressure: 142/70 Respiratory Rate: 16 Pulse Ox: 100 Airway Assessment Mouth opens: >3 cm Mallampati Score: II Focused Labs Anesthesia Preop lab: CBC WBC 8.8 K/mm3 (4.4-11.0) 06/04/23 15:00 06/04/23 RBC 3.84 M/mm3 (4.2-5.4) L 06/04/23 15:00 06/04/23 Hgb 12.0 g/dL (12.0-15.0) 06/04/23 15:00 06/04/23 Hct 36.4 % (37-47) L 06/04/23 15:00 06/04/23 Plt Count 207 K/mm3 (150-450) 06/04/23 15:00 06/04/23 CHEMISTRY Potassium 3.6 mmol/L (3.5-5.1) 06/04/23 15:00 06/04/23 Sodium 144 mmol/L (136-145) 06/04/23 15:00 06/04/23 BUN 15 mg/dL (7-18) 06/04/23 15:00 06/04/23 Creatinine 0.72 mg/dL (0.55-1.02) 06/04/23 15:00 06/04/23 Glucose 114 mg/dL (74-106) H 06/04/23 15:00 06/04/23 POC Glucose 112 mg/dL (74-106) H 11/03/24 05:49 11/03/24 COAG Pre-Assessment Diagnosis/Proposed Procedure Planned Operative Procedure(s): EGD Anesthesia History Anesthesia History - foot roentgenologist: Anesthesia History - foot roentgenologist Hx Hospitalization No 10/27/24 09:39 Any Problems With Anesthesia No 10/27/24 09:39 Cholinesterase deficiency No 10/27/24 09:39 You/Your Family Experience No 10/27/24 09:39 fever (hyperthermia) with Relationship Recent Exposure to Contagious No 11/03/24 05:52 Disease Does patient have nerve Yes: bladder Stim - will 10/27/24 09:39 stimulator bring control to turn off Patient instructed to have device shut off --Does patient have Pacemaker No 11/03/24 05:52 or ICD? When Was Last Pacemaker Check QUESTION #4 FULL TEXT: You/Your Family Experience fever (hyperthermia) with Anesthesia Last Oral Intake Last Oral intake: Last Oral Intake NPO since 04:00 11/03/24 05:52 Meds taken in AM with sips of Yes 11/03/24 05:52 water? Meds patient instructed to levothyroxine 11/03/24 05:52 take am of surgery PONV PONV - foot roentgenologist: PONV - foot roentgenologist Female Yes 10/27/24 09:39 HX of Motion Sickness No 10/27/24 09:39 HX of N/V After Surgery No 10/27/24 09:39 Non-Smoker No 10/27/24 09:39 Duration of Surgery greater No 10/27/24 09:39 than 60 minutes Number of Risk Factors 1 10/27/24 09:39 PONV Score Low Risk 10/27/24 09:39 Height & Weight Height & Weight: Anesthesia: Height & Weight Height 5 ft 3 in 11/03/24 05:52 Weight: 64 kg 11/03/24 05:52 Body Mass Index (BMI) 25.0 11/03/24 05:52 Respiratory Assessment Respiratory Assessment - foot roentgenologist: Respiratory Tract Infection Hx - foot roentgenologist Hx Respiratory Tract Infection No 10/27/24 09:39 STOP Sleep Apnea STOP Sleep Apnea - foot roentgenologist: STOP Sleep Apnea - foot roentgenologist Hx Hypertension Yes: MANY YRS AGO PRIOR TO 10/27/24 09:39 WEIGHT LOSS Hx Sleep Apnea Yes 10/27/24 09:39 CPAP Yes: PRIOR TO WEIGHT LOSS 10/27/24 09:39 BIPAP No 10/27/24 09:39 Do you snore loudly (louder than talking or can be heard Do you often feel tired/ fatigued/ sleepy during daytime? Has anyone observed you stop breathing during sleep? STOP Results Positive 10/27/24 09:39 QUESTION #5 FULL TEXT : Do you snore loudly (louder than talking or can be heard through closed doors)? 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 Specify any problems Hx of Preganancy in last 3 No 10/27/24 09:39 Months Nurse Filling Out Transfusion MGRIFFITH 10/27/24 09:39 & Questions: Date: 10/27/24 10/27/24 09:39 Time: 09:49 10/27/24 09:39 Patient unable to answer at this time (ie. confused, unrespo /Reproduction History /Reproductive History - foot roentgenologist: /Reproductive Hx- foot roentgenologist Hx Now Gestational Age (in weeks): EDC: Hx Hx Para Hx Section SAB No 08/28/24 14:46 PFSH Medical History Bipolar disorder Difficulty swallowing Shortness of breath on exertion History of irregular heartbeat Bladder disease Low iron High cholesterol Easy bruising Restless legs Pain Syncope Vapes nicotine containing substance Wears hearing aid Wears dentures Wears glasses Marijuana use Diabetes Ambulates with cane Thyroid disease Arthritis Injury of back Back pain Injury of head and neck History of hiatal hernia Smoker Sleep apnea Leg cramps History of pain when walking History of stress test Hypertension Anxiety Depression Home Medications ?Medication ?Instructions ?Recorded ?Last Taken ?Type levothyroxine 50 mcg tablet 50 mcg PO DAILY 05/28/21 11/03/24 History alprazolam 0.5 mg tablet 0.5 mg PO QDAY PRN anxiety 05/19/24 Unknown History ascorbic acid (vitamin C) 250 mg 250 mg PO QDAY 05/19/24 Unknown History tablet diclofenac sodium 75 mg 75 mg PO DAILY PRN pain 05/19/24 Unknown History tablet,delayed release simvastatin 20 mg tablet 20 mg PO QHS 05/19/24 Unknown History amitriptyline 25 mg tablet 50 mg PO QHS 07/28/24 Unknown History dulaglutide 0.75 mg/0.5 mL 1.5 mg subcut FR 07/28/24 10/27/24 History subcutaneous pen injector (Trulicity) lubiprostone 8 mcg capsule 8 mcg PO BID #180 caps 08/29/24 Unknown Rx (Amitiza) acetaminophen 500 mg capsule 1,000 mg PO BID 10/27/24 Unknown History ascorbic acid (vitamin C) 125 mg 125 mg PO DAILY 10/27/24 Unknown History chewable tablet (VitaJoy Daily C) citalopram 10 mg tablet (Celexa) 10 mg PO DAILY 10/27/24 Unknown History Allergy/AdvReac Type Severity Reaction Status Date / Time cephalexin (From Keflex) Allergy PT UNSURE Verified 11/03/24 05:57 OF REACTION Surgical History Hx of colonoscopy History of esophagogastroduodenoscopy (EGD) History of surgery on wrist History of cardiac catheterization Hx of hysterectomy Hx of surgical procedure Hx of gastric bypass Hx of bilateral breast reduction surgery Hx of hernia repair Hx of foot surgery Social History Smoking Status: Current every day smoker tobacco type: cigarettes and e-cigarettes substance use type: does not use Review of Systems (Anesthesia) ROS Narrative System reviewed and no additional complaints, except as documented.
[2024-11-03 07:25] LABS: Bedside Glucose 93 mg/dL (74-106)
[2024-11-03 08:22] LABS: Bedside Glucose 114 mg/dL (74-106)
--- NOTE | 2024-11-03 08:29 | PCM.HP.STD ---
HPI - General General Date of Admission: 11/03/24 Date of Service: 11/03/24 Chief Complaint: Anemia and abdominal pain HPI Narrative MELINA LEE, is a 68 F who presents for an egd with capsule placement *BGI established 05.19.24 pt reports she had gastric bypass in 2009, and began having GI issues about 10 years ago after her and she moved back to [place]. Pt reports symptoms of constipation and significant HB. Pt reports it is hard for her to take medication because everything upsets her stomach. OV 07.28.24 pt reports that she is here to reschedule her EGD with capsule placement. Had to cancel previous scope due to a conflicting surgery. [facility] Medical History Bipolar disorder Difficulty swallowing Shortness of breath on exertion History of irregular heartbeat Bladder disease Low iron High cholesterol Easy bruising Restless legs Pain Syncope Vapes nicotine containing substance Wears hearing aid Wears dentures Wears glasses Marijuana use Diabetes Ambulates with cane Thyroid disease Arthritis Injury of back Back pain Injury of head and neck History of hiatal hernia Smoker Sleep apnea Leg cramps History of pain when walking History of stress test Hypertension Anxiety Depression Home Medications ?Medication ?Instructions ?Recorded ?Last Taken ?Type levothyroxine 50 mcg tablet 50 mcg PO DAILY 05/28/21 11/03/24 History alprazolam 0.5 mg tablet 0.5 mg PO QDAY PRN anxiety 05/19/24 Unknown History ascorbic acid (vitamin C) 250 mg 250 mg PO QDAY 05/19/24 Unknown History tablet diclofenac sodium 75 mg 75 mg PO DAILY PRN pain 05/19/24 Unknown History tablet,delayed release simvastatin 20 mg tablet 20 mg PO QHS 05/19/24 Unknown History amitriptyline 25 mg tablet 50 mg PO QHS 07/28/24 Unknown History dulaglutide 0.75 mg/0.5 mL 1.5 mg subcut FR 07/28/24 10/27/24 History subcutaneous pen injector (Trulicity) lubiprostone 8 mcg capsule 8 mcg PO BID #180 caps 08/29/24 Unknown Rx (Amitiza) acetaminophen 500 mg capsule 1,000 mg PO BID 10/27/24 Unknown History ascorbic acid (vitamin C) 125 mg 125 mg PO DAILY 10/27/24 Unknown History chewable tablet (VitaJoy Daily C) citalopram 10 mg tablet (Celexa) 10 mg PO DAILY 10/27/24 Unknown History Allergy/AdvReac Type Severity Reaction Status Date / Time cephalexin (From Keflex) Allergy PT UNSURE Verified 11/03/24 05:57 OF REACTION Surgical History Hx of colonoscopy History of esophagogastroduodenoscopy (EGD) History of surgery on wrist History of cardiac catheterization Hx of hysterectomy Hx of surgical procedure Hx of gastric bypass Hx of bilateral breast reduction surgery Hx of hernia repair Hx of foot surgery Social History Smoking Status: Current every day smoker tobacco type: cigarettes and e-cigarettes substance use type: does not use ROS Constitutional Constitutional: Denies fatigue, fever(s), poor appetite, weight gain or weight loss Gastrointestinal Gastrointestinal: Denies belching, bloating, change in bowel habits, change in stool character, chewing difficulty, coffee ground emesis, constipation, cramping, diarrhea, dyspepsia, dysphagia, early satiety, excessive flatus, fecal incontinence, heartburn, hematemesis, hematochezia, hemorrhoids, loose stools, melena, nausea, odynophagia, rectal bleeding, tenesmus, vomiting or weight changes Vital Signs Vital Signs Vital Signs: 11/03/24 05:52 11/03/24 05:52 11/03/24 07:04 Temperature 97.0 F L 97.0 F L Temperature Source Temporal Pulse Rate 87 87 Respiratory Rate 16 16 Respiratory Pattern Normal Blood Pressure 142/70 H 142/70 H Blood Pressure Mean 94 Blood Pressure Source Monitor Blood Pressure Position Semi-Fowlers Blood Pressure Location Left Arm Pulse Ox 100 100 Oxygen Delivery Method Room Air Weight Weight: 141 lb 1.533 oz Body Mass Index (BMI) 25.0 Physical Exam Const alert, oriented x3, no apparent distress and healthy appearing General Appearance: cooperative GI normal to inspection, nondistended, normoactive bowel sounds, soft to palpation, non-tender and non-distended Percussion: normal to percussion Rectal Exam: deferred Results Lab / Micro Data Labs: Laboratory Results - last 24 hr 04/18/25 05:49: POC Glucose 112 H 11/03/24 07:06: POC Glucose 93 11/03/24 08:02: POC Glucose 114 H Assessment & Plan Assessment/Plan (1) Abdominal pain: (2) Anemia: PLAN: Assessment and Plan Assessment and Plan (1) Abdominal symptoms: Plan: 67-year-old female with history of prior gastric bypass, diabetes mellitus and chronic abdominal pain presenting with worsening of her abdominal pain. She states is diffuse and does sometimes radiate to her chest. She does have some intermittent nausea but does not report any vomiting. Denies any change in her bowel movements. She says that the pain waxes and wanes in intensity but seems to be worse as the day goes on. She saw Dr. Nguyen and had what she thinks is a scope/EGD a few months ago and was told there was not anything on it. She has also seen Dr. Vazquez. She tried to get a hold of Dr. Hatch who said that he would see her if her symptoms are worse but could get a hold of him today. She notes that she previously was on Trulicity but is now on Ozempic. She is back on Trulicity. She does drink a lot of coffee. She describes a burning sensation when she eats. Does take sucralfate as well as pantoprazole and a lot of other medicines does not entirely sure what she is on. She also states she been doing with this pain for at least 6 months and has been seen by multiple surgeons. She is not sure if she has had a gastric emptying study or further work-up. She is on Carafate and antacids with no relief. Also from chart review looks like she is on pain medication. She has a relatively benign abdominal exam with vital signs significant for mild hypertension. Given the chronicity of her pain I am hesitant to give her opioids as she is not on long-term opioids. We will trial Reglan and Haldol for symptom control. Patient does not have significant movement is then given a GI cocktail with improvement of her symptoms. Differential includes pancreatitis, gastritis, peptic ulcer disease, gastroparesis, small bowel obstruction, colitis as well as referred cardiac pain. I think the latter diagnoses are less likely. CBC is largely normal with no leukocytosis or anemia. She is a normal BUN to creatinine ratio and a normal kidney function. Her liver enzymes are normal. Low suspicion for occult GI bleed or acute dehydration. She she had a urinalysis is consistent with contamination. CT of the abdomen pelvis with arterial contrast was obtained to evaluate for possible SMA syndrome or other intra-abdominal process. CT was negative for anything acute. She does have some mild plaques but do not think this explains the extent of her symptoms. At this time the exact etiology of her symptoms not clear therefore we will perform an upper endoscopy in place a capsule endoscopy to evaluate her small bowel for anastomotic ulcers and other small bowel pathology.. We we will put her on Amitiza 8 mcg twice a day to help with slow colonic transit. Medications: New lubiprostone (Amitiza) 8 mcg PO BID 60 caps 0RF
--- NOTE | 2024-11-03 08:58 | PCM.POST.ANE ---
Anesthesia: Postop Eval I Current Vital Signs Temperature: 97 F Pulse Rate: 75 Blood Pressure: 112/70 Respiratory Rate: 16 Pulse Ox: 95 Oxygen Delivery Method: Room Air Assessment Airway patent: Yes Spontaneous unlabored respirations: Yes Mental status: Awake and Calm nausea: No Vomiting: No Anesthesia Complication: No Fluid Hydration Crystalloid volume administer (ml): 20 Total IV fluid infused: 20 Progress Note Anesthesia document: Postop Eval 1 completed: Yes
--- NOTE | 2024-11-03 09:02 | POSTOPAN2_ITS ---
Anesthesia Postop Eval I Sum Postop Eval Completion status Anesthesia document: Postop Eval 1 completed: Yes Anesthesia Postop Eval I Summary Anesthesia Postop Eval I Summary: Anesthesia Postop Eval I: Assessment Summary Airway patent Yes 11/03/24 08:59 [email or web address] Spontaneous unlabored Yes 11/03/24 08:59 [email or web address] respirations Mental status Awake,Calm 11/03/24 08:59 [email or web address] nausea No 11/03/24 08:59 [email or web address] Vomiting No 11/03/24 08:59 [email or web address] Anesthesia Postop Eval I: Fluid Summary Crystalloid volume administer 20 11/03/24 08:59 [email or web address] (ml) Colloids volume administered ( ml) Blood Product volume administered (ml) Total IV fluid infused 20 11/03/24 08:59 [email or web address] Anesthesia Postop Eval I: Summary Notes Anesthesia Complication No 11/03/24 08:59 [email or web address] Anesthesia Complication Comment: Post-operative progress note Anesthesia: Postop Eval II Evaluation Mental status: Awake and Calm Pain Level: 0 nausea: No Vomiting: No Complications Anesthesia Complication: No
--- NOTE | 2024-11-03 09:02 | PCM.POSTANE2 ---
Anesthesia Postop Eval I Sum Postop Eval Completion status Anesthesia document: Postop Eval 1 completed: Yes Anesthesia Postop Eval I Summary Anesthesia Postop Eval I Summary: Anesthesia Postop Eval I: Assessment Summary Airway patent Yes 11/03/24 08:59 [employer]CREATIONAL [employer] MOTEL [email or web address] Spontaneous unlabored Yes 11/03/24 08:59 RECREATIONAL FAC[employer] MOTEL [email or web address] respirations Mental status Awake,Calm 11/03/24 08:59 RECREATIONAL [employer]AC[employer] MOTEL [email or web address] nausea No 11/03/24 08:59 RECREATIONAL FACIL[employer]IES MOTEL [email or web address] Vomiting No 11/03/24 08:59 RECREATIONAL FACIL[employer]IES MOTEL [email or web address] Anesthesia Postop Eval I: Fluid Summary Crystalloid volume administer 20 11/03/24 08:59 RECREATIONAL FACILITIES MOTEL [email or web address] (ml) Colloids volume administered ( ml) Blood Product volume administered (ml) Total IV fluid infused 20 11/03/24 08:59 RECREATIONAL FACIL[employer]IES MOTEL [email or web address] Anesthesia Postop Eval I: Summary Notes Anesthesia Complication No 11/03/24 08:59 RECREATIONAL FACIL[employer]IES MOTEL [email or web address] Anesthesia Complication Comment: Post-operative progress note Anesthesia: Postop Eval II Evaluation Mental status: Awake and Calm Pain Level: 0 nausea: No Vomiting: No Complications Anesthesia Complication: No
--- NOTE | 2024-11-03 09:09 | OP.EGD_ITS ---
Patient Name: Marilee Carrasquillo Procedure Date: 11/03/2024 6:39 AM Date of : 1955 Age: 68 Procedure: Upper GI endoscopy Indications: Generalized abdominal pain, Iron deficiency anemia Providers: Phillip Coates DO Referring MD: Sukhwinder Grover Medicines: Monitored Anesthesia Care Patient Profile: This is a 68 year old female. Refer to note in patient chart for documentation of history and physical. Patient has symptoms of chronic global abdominal pain. Her most recent colonoscopy (normal) and EGD (normal). She is status post laparoscopic gastric bypass. Complications: No immediate complications. Procedure: Pre-Anesthesia Assessment: - Prior to the procedure, a History and Physical was performed, and patient medications and allergies were reviewed. The patient is competent. The risks and benefits of the procedure and the sedation options and risks were discussed with the patient. All questions were answered and informed consent was obtained. Patient identification and proposed procedure were verified by the physician in the pre-procedure area. Mental Status Examination: alert and oriented. Airway Examination: normal oropharyngeal airway and neck mobility. Respiratory Examination: clear to auscultation. CV Examination: normal. Prophylactic Antibiotics: The patient does not require prophylactic antibiotics. Prior Anticoagulants: The patient has taken no anticoagulant or antiplatelet agents except for NSAID medication. ASA Grade Assessment: II - A patient with mild systemic disease. After reviewing the risks and benefits, the patient was deemed in satisfactory condition to undergo the procedure. The anesthesia plan was to use monitored anesthesia care (MAC). Immediately prior to administration of medications, the patient was re-assessed for adequacy to receive sedatives. The heart rate, respiratory rate, oxygen saturations, blood pressure, adequacy of pulmonary ventilation, and response to care were monitored throughout the procedure. The physical status of the patient was re-assessed after the procedure. After obtaining informed consent, the endoscope was passed under direct vision. Throughout the procedure, the patient's blood pressure, pulse, and oxygen saturations were monitored continuously. The Endoscope was introduced through the mouth, and advanced to the anastomosis site of gastric bypass. The upper GI endoscopy was accomplished without difficulty. The patient tolerated the procedure well. Scope In: 8:48:26 AM Scope Out: 8:56:17 AM Total Procedure Duration Time 0 hours 7 minutes 51 seconds Findings: LA Grade B (one or more mucosal breaks greater than 5 mm, not extending between the tops of two mucosal folds) esophagitis with no bleeding was found 35 to 40 cm from the incisors. Two non-bleeding linear gastric ulcers with no stigmata of bleeding were found in the gastric fundus. The largest lesion was 4 mm in largest dimension. Evidence of a Suzanne-en-Y gastrojejunostomy was found. The gastrojejunal anastomosis was characterized by healthy appearing mucosa. This was traversed. The wqfur-ae-[id number] limb was characterized by healthy appearing mucosa. The jejunojejunal anastomosis was characterized by healthy appearing mucosa. The [id number]-[id number] limb was not examined as it could not be found. The excluded stomach was not examined as it could not be found. Using the endoscope, the video capsule enteroscope was advanced into the proximal jejunum. The video capsule was positioned 60 cm from the incisors. Impression: - LA Grade B erosive esophagitis with no bleeding. - Non-bleeding gastric ulcers with no stigmata of bleeding. - Suzanne-en-Y gastrojejunostomy with gastrojejunal anastomosis characterized by healthy appearing mucosa. - No specimens collected. Recommendation: - Discharge patient to home. - Resume previous diet. - Continue present medications. Procedure Code(s): --- Professional --- 95930, Esophagogastroduodenoscopy, flexible, transoral; diagnostic, including collection of specimen(s) by brushing or washing, when performed (separate procedure) CPT copyright 2021 [employer]. All rights reserved. The codes documented in this report are preliminary and upon postmaster review may be revised to meet current compliance requirements. Phillip Coates DO 11/03/2024 9:08:37 AM This report has been signed electronically. Number of Addenda: 0 Note Initiated On: 11/03/2024 6:39 AM
--- NOTE | 2024-11-03 09:09 | OP.CCLET_ITS ---
11/03/2024 Sukhwinder Grover Re : Upper GI endoscopy procedure for Marilee Carrasquillo Dear Laura This procedure was performed on Sunday, November 03, 2024. My impressions and recommendations are as follows: Impressions : - LA Grade B erosive esophagitis with no bleeding. - Non-bleeding gastric ulcers with no stigmata of bleeding. - Suzanne-en-Y gastrojejunostomy with gastrojejunal anastomosis characterized by healthy appearing mucosa. - No specimens collected. Recommendations : - Discharge patient to home. - Resume previous diet. - Continue present medications. My findings are described in the full procedure note, which is enclosed. If I can be of further assistance, please feel free to contact me at . Sincerely, Phillip Coates, 11/03/2024 9:08:37 AM This report has been signed electronically.
== END 2024-11-03 09:45 | disposition home or self-care (01) ==
LOC: EN 05:06 → AC 05:14
PROVIDERS: PCP Nurse Practitioner Family; Referring Provider Nurse Practitioner Family; Visit Provider Internal Medicine Gastroenterology
PROC: 0DJ08ZZ Inspection of Upper Intestinal Tract, Via Natural or Artificial Opening Endoscopic (ICD-10-PCS; CPT 43235; principal; 2024-11-03 06:25)
DX: R10.9 Unspecified abdominal pain (principal); E11.9 Type 2 diabetes mellitus without complications; I10 Essential (primary) hypertension; F17.210 Nicotine dependence, cigarettes, uncomplicated; E78.00 Pure hypercholesterolemia, unspecified; F41.9 Anxiety disorder, unspecified; Z79.899 Other long term (current) drug therapy; Z79.85 Long-term (current) use of injectable non-insulin antidiabetic drugs; Z90.710 Acquired absence of both cervix and uterus; F17.290 Nicotine dependence, other tobacco product, uncomplicated; D64.9 Anemia, unspecified; Z98.84 Bariatric surgery status; K25.9 Gastric ulcer, unspecified as acute or chronic, without hemorrhage or perforation; K21.00 Gastro-esophageal reflux disease with esophagitis, without bleeding
CPT/HCPCS: 0651T; 82962; A4216